=== PATIENT | female | born 1990 | race African-American/Black ===

== ENCOUNTER 2016-07-06 11:17 | Emergency (ER) | payer MEDICARE, OTHER ==
[~2016-07-06] VITALS: Ht 144.8 cm; Wt 49.9 kg
[~2016-07-06 11:17] MED LIST: ACETAMINOPHEN500 M3 ORAL; IBUPROFEN600 MG ORAL; NKM; NORCO 5-325 TA1 EACH ORAL
[2016-07-06] MEDS ORDERED: Oxycodone/Acetaminophen 5-325 ORAL ONE (12:00)
[2016-07-06] MEDS ORDERED: Ketorolac 60mg Inj IM ONE (12:00)
[2016-07-06] MEDS ORDERED: PREDNISONE20 MG ORAL (12:21)
[2016-07-06 12:32] VITALS: BP 85/54
--- NOTE | 2016-07-07 06:58 | Emergency Room Report ---
History of Present Illness General Chief Complaint: Upper Extremity Injury Source: Patient Present Illness HPI 25 YO F with 1 week of left forearm/wrist/hand pain. Denies trauma. Pain is worse with movement, but she states she has to move/flex her hands/fingers to "make it better." Denies swelling, redness, rash to area. Denies heavy lifting , recent new exercise, history of DVT. Denies history of carpal tunnel. Doesnt have office job. Has been taking alleve, motrin at home with some improvement. Pain keeps her up at night. Per EMR, here last year 2x for ?elbow fx, left arm pain as well. Patient is left hand dominant. Allergies: Coded Allergies: No Known Allergies (Unverified , 01/14/15) Patient History Past Medical History: none Past Surgical History: none Pertinent Family History: none Social History: Denies: alcohol use, drug use, smoking Last Menstrual Period: 05/18/16 Now: No - unsure Immunizations: UTD Reviewed Nursing Documentation: PMH: Agreed, PSxH: Agreed Nursing Documentation-PMH Past Medical History: No History, Except For Review of Systems All Other Systems: negative except mentioned in HPI Physical Exam Vital Signs Date Time Temp Pulse Resp B/P Pulse Ox O2 Delivery O2 Flow Rate FiO2 07/06/16 11:41 98.8 91 16 85/54 100 Room Air Sp02 EP Interpretation: reviewed, normal General Appearance: normal inspection, well appearing, alert, GCS 15, non-toxic , mild distress Head: normocephalic, atraumatic Eyes: bilateral eye EOMI, bilateral eye PERRL ENT: normal ENT inspection, hearing grossly normal, normal voice Neck: normal inspection, full range of motion, supple, no bony tend Respiratory: normal inspection, lungs clear, normal breath sounds, no respiratory distress, no retraction, no wheezing Cardiovascular #1: regular rate, rhythm, no edema Gastrointestinal: normal inspection, normal bowel sounds, non tender, soft, no guarding, no hernia Genitourinary: no CVA tenderness Musculoskeletal: normal inspection, back normal, normal range of motion, Marilin' s Sign negative, other - Left arm: No obvious swelling or erythema or deformity to left forearm, wrist, hand. There is no focal ttp on exa. Compartments are soft. Negatve phalen/tinnel test. Neurologic: normal inspection, alert, oriented x3, responsive, load out worker III-XII nml as tested, motor strength/tone normal, speech normal Psychiatric: normal inspection, judgement/insight normal, mood/affect normal Skin: normal inspection, normal color, no rash Lymphatic: normal inspection Medical Decision Making Diagnostic Impression: Primary Impression: Musculoskeletal pain of left upper extremity ER Course Left arm pain. VSS. Afebrile. Atraumatic. No sign of infection. Unlikely rhabdo as no precipitating activity, no recent new exercise. Unlikely CPT as no office work Possible rheumatism?, previous visits for similar type of pain Possible neuropathy Given minimal improvement with NSAIDS, will dry short course of steroids with recommendation for PMD followup, ?rheum referral DC home Last Vital Signs Date Time Temp Pulse Resp B/P Pulse Ox O2 Delivery O2 Flow Rate FiO2 07/06/16 12:32 98.7 07/06/16 12:32 16 85/54 100 Room Air 07/06/16 11:41 91 Status: improved Disposition: HOME, SELF-CARE Condition: Improved Scripts Prednisone* (PREDNISONE*) 20 Mg Tablet 20 MG ORAL DAILY for 5 Days, #5 TAB Prov: RAMYA MUHAMMAD M.D. 07/06/16 Referrals: [facility],REFERRING (PCP) Patient Instructions: Musculoskeletal Pain Additional Instructions: - Take Prednisone once daily for 5 days - Follow up with your doctor in 2-3 days RAMYA MUHAMMAD M.D. Jul 07, 2016 06:58
== END 2016-07-06 12:30 | disposition home or self-care (01) ==
LOC: EMR 12:25
DX: M79.632 Pain in left forearm (principal); M25.532 Pain in left wrist; M79.642 Pain in left hand
CPT/HCPCS: 96372; 99283

== ENCOUNTER 2017-03-18 17:53 | Emergency (ER) | payer MEDICARE, OTHER ==
[~2017-03-18] VITALS: Ht 144.8 cm; Wt 55.3 kg
[~2017-03-18 17:53] MED LIST changes: +PREDNISONE20 MG ORAL
--- NOTE | 2017-03-18 18:23 | Emergency Room Report ---
History of Present Illness General Chief Complaint: Skin Rash/Abscess Source: Patient, Medical Record Present Illness HPI Patient presents with erythema and redness to bilateral legs she noticed the area become more red this morning the area is itchy Denies any fevers or chills denies any chest pain or shortness of breath Denies any recent trauma Denies any lesions in the upper extremity Denies any discharge from the area Allergies: Coded Allergies: No Known Allergies (Unverified , 01/14/15) Patient History Past Medical History: see triage record Pertinent Family History: none Last Menstrual Period: 03/14/17 Reviewed Nursing Documentation: PMH: Agreed, PSxH: Agreed Nursing Documentation-PMH Past Medical History: No History, Except For Review of Systems All Other Systems: negative except mentioned in HPI Physical Exam Vital Signs Date Time Temp Pulse Resp B/P (MAP) Pulse Ox O2 Delivery O2 Flow Rate FiO2 03/18/17 17:55 98.1 101 18 110/74 99 Room Air Sp02 EP Interpretation: reviewed, normal General Appearance: well appearing, no apparent distress Head: normocephalic, atraumatic Eyes: bilateral eye PERRL, bilateral eye EOMI ENT: hearing grossly normal, normal pharynx, TMs + canals normal, uvula midline Neck: full range of motion, supple, no meningismus, no bony tend Respiratory: lungs clear, normal breath sounds, no rhonchi, no respiratory distress, no retraction, no accessory muscle use Cardiovascular #1: normal peripheral pulses, regular rate, rhythm, no edema, no gallop, no JVD, no murmur Gastrointestinal: normal bowel sounds, non tender, soft, no mass, no organomegaly, non-distended, no guarding, no hernia, no pulsatile mass, no rebound Musculoskeletal: normal inspection Neurologic: oriented x3, responsive, software developer mid level III-XII nml as tested, motor strength/ tone normal, sensory intact Psychiatric: mood/affect normal Skin: other - Several areas of urticarial lesions on the right and left upper thigh area, on the one area there is a central area of the scab appears to be possibly in line with insect bite otherwise no streaking of the erythema no fluctuance,, Lymphatic: normal inspection, no adenopathy Medical Decision Making Diagnostic Impression: Primary Impression: Insect bite Additional Impression: Rash and other nonspecific skin eruption ER Course Patient's regions appear to be in line with likely insect bite, reactive Patient was provided with medications here no signs of any airway pathology the area does not necessarily look infected and the patient will have initial conservative outpatient trial Last Vital Signs Date Time Temp Pulse Resp B/P (MAP) Pulse Ox O2 Delivery O2 Flow Rate FiO2 03/18/17 17:55 98.1 101 18 110/74 99 Room Air Status: improved Disposition: HOME, SELF-CARE Condition: Improved Scripts Famotidine (PEPCID) 40 Mg Tablet 40 MG PO DAILY, #7 TAB 0 Refills Prov: EILEEN BO D.O. 03/18/17 Diphenhydramine Hcl* (BENADRYL*) 25 Mg Capsule 25 MG ORAL Q6H Y for Itching for 7 Days, CAP Prov: EILEEN BO D.O. 03/18/17 Prednisone* (PREDNISONE*) 20 Mg Tablet 20 MG ORAL BID, #8 TAB Prov: EILEEN BO D.O. 03/18/17 Additional Instructions: Patient is provided with the discharge instructions notified to follow up with primary doctor in the next 2-3 days otherwise return to the er with any worsening symptoms. Please note that this report is being documented using [employer] technology. This can lead to erroneous entry secondary to incorrect interpretation by the dictating instrument. EILEEN BO D.O. Mar 18, 2017 18:23
[2017-03-18] MEDS ORDERED: PEPCID40 MG PO (18:24)
[2017-03-18] MEDS ORDERED: BENADRYL25 MG ORAL (18:24)
[2017-03-18] MEDS ORDERED: PREDNISONE20 MG ORAL (18:24)
[2017-03-18 18:40] VITALS: BP 100/70
== END 2017-03-18 19:00 | disposition home or self-care (01) ==
LOC: EMR 18:30
DX: S70.369A Insect bite (nonvenomous), unspecified thigh, initial encounter (principal); W57.XXXA Bitten or stung by nonvenomous insect and other nonvenomous arthropods, initial encounter; Y92.9 Unspecified place or not applicable; R21 Rash and other nonspecific skin eruption
CPT/HCPCS: 99283

== ENCOUNTER → 2017-12-06 | Emergency (ER) | payer MEDICARE, OTHER ==
[~2017-12-06] VITALS: Ht 144.8 cm; Wt 54.4 kg
[~2017-12-06] MED LIST changes: +AMOXICILLIN500 MG ORAL; +AUGMENTIN 875-1 EAC1 ORAL; +BENADRYL25 MG ORAL; +NEOMYCIN-POLYMY10 M1 OT; +PEPCID40 MG PO
[2017-12-06 17:17] VITALS: BP 118/81
--- NOTE | 2017-12-06 17:36 | Emergency Room Report ---
History of Present Illness General Chief Complaint: Earache Source: Patient Present Illness HPI 27-year-old female patient presents ER complaining of right ear pain and discharge the past 2 days. Denies fever, chest pain, shortness of breath. Denies recent swimming prior to onset of symptoms.. Denies other acute symptoms. Denies vertigo, vision changes, tinnitus. Reports pain with ear pulling. Denies hx of systemic disease, HIV, lupus. Denies other past medical problems. Allergies: Coded Allergies: No Known Allergies (Unverified , 01/14/15) Patient History Past Medical History: see triage record Last Menstrual Period: last week Now: No Reviewed Nursing Documentation: PMH: Agreed; PSxH: Agreed Nursing Documentation-PMH Past Medical History: No History, Except For Review of Systems All Other Systems: negative except mentioned in HPI Physical Exam Vital Signs Date Time Temp Pulse Resp B/P (MAP) Pulse Ox O2 Delivery O2 Flow Rate FiO2 12/06/17 17:11 98.3 77 18 118/81 99 Room Air 98.2 Sp02 EP Interpretation: reviewed, normal General Appearance: well appearing, no apparent distress, alert, GCS 15, non- toxic Head: normocephalic, atraumatic, other - no mastoid swelling, no mastoid erythema or edema, no TTP over mastoid process bilaterally ENT: hearing grossly normal, normal pharynx, no angioedema, normal voice, TMs + canals normal - left ear, uvula midline, moist mucus membranes, other - right ear: TM nonerythematous and intact, purulent material and edema noted, pain with ear pulling; no blistering or vesicles Neck: full range of motion Respiratory: lungs clear, normal breath sounds, no rhonchi, no respiratory distress, no accessory muscle use, no wheezing, speaking full sentences Cardiovascular #1: regular rate, rhythm, no edema Musculoskeletal: back normal, digits/nails normal, gait/station normal, normal range of motion, non-tender Neurologic: alert, oriented x3, responsive, motor strength/tone normal, sensory intact Psychiatric: mood/affect normal Medical Decision Making PA Attestation Dr. Kruse is my supervising Physician whom patient management has been discussed with. Diagnostic Impression: Primary Impression: Otitis externa ER Course Pt presents to ED c/o ear pain. DDX considered but are not limited to rhinitis, sinusitis, otitis media, otitis externa, cellulitis, mastoiditis, cerumen impaction. Low suspicion for mastoiditis, no swelling or erythema noted posterior to ear, no TTP. VITAL SIGNS are WNL, patient is afebrile. ER COURSE: Physical exam shows a right-sided purulent material noted, pain with ear pulling , likely otitis externa. Able to visualize TM, nonerythematous TM, no perforation, low suspicion for otitis media. Will provide patient with treatment for otitis externa. Checked patient follow-up with primary care provider and discuss referral to ENT as needed. Avoid swimming while treating infection. ER precautions given. DISCHARGE: -Rx provided for Neomycin/polmyxin B/HC drops Patient is hemodynamically stable and ready for discharge to home, nontoxic appearing, no acute distress, smiling and texting on phone. At this time pt is stable for d/c to home. resting comfortably, in no acute distress, nontoxic appearing, smiling. Patient to take medications as instructed Will provide with patient care instructions and any necessary prescriptions. Care plan and follow-up instructions provided. Patient instructed to follow-up with primary care in 3 - 5 days. Patient provided with list of clinics to establish care if unable to contact current PCP. Patient questions asked and answered. ER precautions given. Patient instructed to return to ER immediately for any new or worsening of symptoms including but not limited to increasing SOB, persistent fever. - Please note that this Emergency Department Report was dictated using [employer] painter technology software, occasionally this can lead to erroneous entry secondary to interpretation by the dictation equipment. Last Vital Signs Date Time Temp Pulse Resp B/P (MAP) Pulse Ox O2 Delivery O2 Flow Rate FiO2 12/06/17 17:17 98.2 18 118/81 99 Room Air 98.2 12/06/17 17:11 77 Disposition: HOME, SELF-CARE Condition: Stable Scripts Neomycin/Polymyxin B Sulf/Hc ([id number] EAR SUSP) 10 Ml Drops.susp 2 DROP OT TID for 7 Days, #10 ML Prov: James Ravi 12/06/17 Patient Instructions: Otitis Externa, [id number] Additional Instructions: Followup with primary care provider in 3 -5 days. Discuss referral to ENT. Do not use Q-tips. Take medications as directed. Patient questions asked and answered. ER precautions given, patient instructed to return to ER immediately for any new or worsening of symptoms. James Ravi Dec 06, 2017 17:36
[2017-12-06 17:44] VITALS: BP 118/81
== END | disposition home or self-care (01) ==
LOC: EMR 17:44
DX: H60.91 Unspecified otitis externa, right ear (principal)
CPT/HCPCS: 99283

== ENCOUNTER 2017-12-23 21:25 | Emergency (ER) | payer MEDICARE, MEDICAID ==
[~2017-12-23] VITALS: Ht 144.8 cm; Wt 51.7 kg
[~2017-12-23 21:25] MED LIST changes: -AMOXICILLIN500 MG ORAL; -AUGMENTIN 875-1 EAC1 ORAL
[2017-12-23] MEDS ORDERED: AMOXICILLIN500 MG ORAL (22:37)
[2017-12-23] MEDS ORDERED: AUGMENTIN 875-1 EAC1 ORAL (22:39)
--- NOTE | 2017-12-23 22:39 | Emergency Room Report ---
History of Present Illness General Chief Complaint: Earache Source: Patient Present Illness HPI Patient is a 27-year-old female who presented after increased right ear pain. Patient gradual onset of symptoms. She had recently been started on topical antibiotics. She denies recent trauma. Patient states that she had been having increased right ear pain was associated with some difficulty hearing. She denies any dizziness or lightheadedness. She had not been vomiting. She denied any neck pain or stiffness. Allergies: Coded Allergies: No Known Allergies (Unverified , 01/14/15) Patient History Past Medical History: see triage record Last Menstrual Period: 11/2017 Now: No Reviewed Nursing Documentation: PMH: Agreed; PSxH: Agreed Nursing Documentation-PMH Past Medical History: No History, Except For Review of Systems All Other Systems: negative except mentioned in HPI Physical Exam Vital Signs Date Time Temp Pulse Resp B/P (MAP) Pulse Ox O2 Delivery O2 Flow Rate FiO2 12/23/17 22:25 98.2 81 16 96/65 98 98.2 General Appearance: well appearing, no apparent distress, alert, GCS 15, non- toxic Head: normocephalic, atraumatic ENT: other - right ear canal fluid, yellow drainage Neck: full range of motion, supple Respiratory: no respiratory distress, speaking full sentences Musculoskeletal: no calf tenderness Neurologic: normal gait Psychiatric: mood/affect normal Skin: no rash Medical Decision Making Diagnostic Impression: Primary Impression: Earache, right ER Course Patient presented for ear pain. Differential diagnosis included was not limited to otitis media, malignant otitis externa, foreign body, cellulitis, mastoiditis, carotid dissection, myocardial infarction among others. The patient appears to have otitis media without perforation. The patient given prescription for oral antibiotics. Patient was advised follow-up with ENT. The patient is advised to follow up with primary care doctor in 1-2 days for ENT referral. Patient is advised to return if any worsening condition or if any changes in status that are concerning. This report is dictated with [employer] soldering machine operator helper software which may occasionally lead to discrepancies related to use of this software. Last Vital Signs Date Time Temp Pulse Resp B/P (MAP) Pulse Ox O2 Delivery O2 Flow Rate FiO2 12/23/17 22:25 98.2 81 16 96/65 98 98.2 Status: improved Disposition: HOME, SELF-CARE Condition: Stable Scripts Amoxicillin/Potassium Clav 875-125* (AUGMENTIN 875-125 TABLET*) 1 Each Tablet 1 TAB ORAL TWICE A DAY, #14 TAB Prov: Jose Eduardo Min MD 12/23/17 Amoxicillin* (AMOXIL*) 500 Mg Capsule 500 MG ORAL THREE TIMES A DAY, #21 CAP Prov: Jose Eduardo Min MD 12/23/17 Patient Instructions: Otitis Media, Adult Jose Eduardo Min MD Dec 23, 2017 22:39
[2017-12-23 22:40] VITALS: BP 96/65
[2017-12-23 23:00] VITALS: BP 96/65
== END 2017-12-23 23:00 | disposition home or self-care (01) ==
LOC: EMR 23:00
DX: H92.01 Otalgia, right ear (principal)
CPT/HCPCS: 99283

== ENCOUNTER 2018-03-10 23:52 | Emergency (ER) | payer MEDICARE, MEDICAID ==
[~2018-03-10] VITALS: Ht 144.8 cm; Wt 54.4 kg
[~2018-03-10 23:52] MED LIST changes: +AMOXICILLIN500 MG ORAL; +AUGMENTIN 875-1 EAC1 ORAL
[2018-03-10] MEDS ORDERED: NKM (23:57)
[2018-03-10 23:58] VITALS: BP 112/77
[2018-03-11] MEDS ORDERED: IBUPROFEN600 MG ORAL (00:42)
[2018-03-11] MEDS ORDERED: CEPHALEXIN500 MG ORAL (00:42)
[2018-03-11] MEDS ORDERED: BACTRIM DS TAB1 EAC1 ORAL (00:42)
[2018-03-11] MEDS ORDERED: Bactrim-DS 1 tab ORAL ONE (00:45)
[2018-03-11] MEDS ORDERED: Cephalexin 500mg cap ORAL ONE (00:45)
[2018-03-11 00:50] VITALS: BP 112/77
--- NOTE | 2018-03-11 02:40 | Emergency Room Report ---
History of Present Illness General Chief Complaint: Skin Rash/Abscess Source: Patient Present Illness HPI Patient is a 27-year-old female who presented after increased scalp discomfort. The patient reports having increased pain for the past few days. She denies any fever. She reports having some increased pain to the left side of her neck. She denies any vomiting or neck stiffness. She denies recent trauma.The pain was sharp in nature. Allergies: Coded Allergies: No Known Allergies (Unverified , 01/14/15) Patient History Past Medical History: see triage record Last Menstrual Period: 02/14/18 Now: No Reviewed Nursing Documentation: PMH: Agreed; PSxH: Agreed Review of Systems All Other Systems: negative except mentioned in HPI Physical Exam Vital Signs Date Time Temp Pulse Resp B/P (MAP) Pulse Ox O2 Delivery O2 Flow Rate FiO2 03/10/18 23:54 98.6 97 16 112/77 97 Room Air General Appearance: well appearing, no apparent distress, alert, GCS 15 Head: atraumatic, other - scalp erythema, no fluctuance ENT: hearing grossly normal, normal voice Neck: full range of motion, supple Respiratory: normal inspection, no respiratory distress, speaking full sentences Cardiovascular #1: normal inspection Musculoskeletal: no calf tenderness Neurologic: normal inspection, alert, oriented x3, responsive, normal gait Psychiatric: mood/affect normal Skin: other - occipital scalp rash Lymphatic: adenopathy - left posterior cervical Medical Decision Making Diagnostic Impression: Primary Impression: Infection of scalp ER Course The patient presented for skin rash. Differential diagnoses included was not limited to cellulitis, abscess, kerion, burn among others. Patient has a benign exam and does not appear to require any further imaging or laboratory testing at this time. The patient does not appear to have any the fluctuant abscess at this time. The patient was given prescription for antibiotics. She is advised to recheck with physician in one to 2 days. Labs Test 03/11/18 00:00 Urine HCG, Qualitative Negative (NEGATIVE) Urine Opiates Screen Negative (NEGATIVE) Urine Barbiturates Screen Negative (NEGATIVE) Phencyclidine (PCP) Screen Negative (NEGATIVE) Urine Amphetamines Screen Negative (NEGATIVE) Urine Benzodiazepines Screen Negative (NEGATIVE) Urine Cocaine Screen Negative (NEGATIVE) Urine Marijuana (THC) Screen Positive (NEGATIVE) Last Vital Signs Date Time Temp Pulse Resp B/P (MAP) Pulse Ox O2 Delivery O2 Flow Rate FiO2 03/11/18 00:50 98.6 77 16 112/77 97 Room Air Status: improved Disposition: HOME, SELF-CARE Condition: Stable Scripts Ibuprofen* (MOTRIN*) 600 Mg Tablet 600 MG ORAL Q8H PRN for For Pain, #30 TAB 0 Refills Prov: Jose Eduardo Min MD 03/11/18 Cephalexin* (KEFLEX*) 500 Mg Capsule 500 MG ORAL EVERY 6 HOURS, #28 CAP Prov: Jose Eduardo Min MD 03/11/18 Trimethoprim/Sulfamethoxazole 160/800* (BACTRIM DS TABLET*) 1 Each Tablet 1 TAB ORAL Q12H, #14 TAB 0 Refills Prov: Jose Eduardo Min MD 03/11/18 Referrals: [facility]/,REFERRING (PCP) Patient Instructions: Cellulitis Jose Eduardo Min MD Mar 11, 2018 02:40
== END 2018-03-11 00:50 | disposition home or self-care (01) ==
LOC: EMR 23:57
DX: L08.9 Local infection of the skin and subcutaneous tissue, unspecified (principal); R59.0 Localized enlarged lymph nodes
CPT/HCPCS: 80307; 81025; 99284

== ENCOUNTER 2018-06-15 22:14 | Emergency (ER) | payer MEDICARE, MEDICAID ==
[~2018-06-15] VITALS: Ht 144.8 cm; Wt 54.4 kg
[~2018-06-15 22:14] MED LIST changes: +BACTRIM DS TAB1 EAC1 ORAL; +CEPHALEXIN500 MG ORAL
[2018-06-15] MEDS ORDERED: NKM (22:20)
--- NOTE | 2018-06-15 22:26 | Emergency Room Report ---
History of Present Illness General Chief Complaint: Lower Extremity Injury Source: Patient Present Illness HPI This is a 27-year-old he male without any significant past medical history. She presents with chief complaint of left knee pain. She was running 3 days ago. She slipped and fell and hit her left knee. Complaining of pain over that area. There is some swelling. No nausea no vomiting but no fever chills or pain is 8 out of 10. Worse with movement. Been limping since then. No other injury. Did not pass out. Allergies: Coded Allergies: No Known Allergies (Unverified , 01/14/15) Patient History Past Medical History: see triage record, old chart reviewed Past Surgical History: none Pertinent Family History: none Social History: Denies: smoking Last Menstrual Period: may 14 Now: No Immunizations: other Reviewed Nursing Documentation: PMH: Agreed; PSxH: Agreed Review of Systems Eye: Denies: eye pain, blurred vision ENT: Denies: ear pain, nose congestion, throat swelling Respiratory: Denies: cough, shortness of breath Cardiovascular: Denies: chest pain, palpitations Gastrointestinal: Denies: abdominal pain, diarrhea, nausea, vomiting Musculoskeletal: Reports: joint pain; Denies: back pain Skin: Denies: rash Neurological: Denies: headache, numbness Endocrine: Denies: increased thirst, increased urine Hematologic/Lymphatic: Denies: easy bruising All Other Systems: negative except mentioned in HPI Physical Exam Vital Signs Date Time Temp Pulse Resp B/P (MAP) Pulse Ox O2 Delivery O2 Flow Rate FiO2 06/15/18 22:17 98.4 80 16 103/58 97 Room Air vitals normal Sp02 EP Interpretation: reviewed, normal General Appearance: well appearing, no apparent distress, alert Head: normocephalic, atraumatic Eyes: bilateral eye PERRL, bilateral eye EOMI ENT: hearing grossly normal, normal pharynx Neck: full range of motion, supple, no meningismus Respiratory: chest non-tender, lungs clear, normal breath sounds Cardiovascular #1: regular rate, rhythm, no murmur Gastrointestinal: normal bowel sounds, non tender, no mass, no organomegaly, no bruit, non-distended Musculoskeletal: back normal, normal range of motion, other - abrasion to left patella and TTP. mild edema. Decreased ROM due to pain. Psychiatric: mood/affect normal Skin: warm/dry Procedures Splinting Splinting : Consent: Verbal Location: left knee Pre-Made Type: LILLIE wrap Pre-Proc Neuro Vasc Exam: normal Post-Proc Neuro Vasc Exam: normal Patient Tolerated: Well Complications: None Medical Decision Making Diagnostic Impression: Primary Impression: Contusion of left knee, initial encounter Additional Impression: Abrasion, left knee, initial encounter ER Course Patient with injury to the left knee. She has an abrasion and some mild redness. Possible early cellulitis but we'll put on antibiotics. On her x-ray , there is a calcified a mass inferior to the patella. Her injury and abrasion is to the superior aspect of the patella. I see no evidence of foreign body. She had previous injury to this area when she was younger. This could've been a retained foreign body versus calcification from tendon laceration. This is not acute. Other X-Ray Diagnostic Results Other X-Ray Diagnostic Results : X-Ray ordered: Left knee x-rays # of Views/Limited Vs Complete: 4 View Indication: Pain EP Interpretation: Yes Interpretation: no dislocation, no soft tissue swelling, no fractures Impression: No acute disease Electronically Signed by: Shaji Barraza MD Last Vital Signs Date Time Temp Pulse Resp B/P (MAP) Pulse Ox O2 Delivery O2 Flow Rate FiO2 06/15/18 22:17 98.4 80 16 103/58 97 Room Air Status: improved Disposition: HOME, SELF-CARE Condition: Stable Scripts Tramadol Hcl* (ULTRAM*) 50 Mg Tablet 50 MG ORAL Q6H PRN for For Pain, #15 TAB 0 Refills Prov: Shaji Barraza MD 06/15/18 Trimethoprim/Sulfamethoxazole 160/800* (BACTRIM DS TABLET*) 1 Each Tablet 1 TAB ORAL Q12H, #14 TAB 0 Refills Prov: Shaji Barraza MD 06/15/18 Additional Instructions: Keep area clean. Clean with hydroperoxide and then apply antibiotic ointment. Use crutches as needed. Follow-up with your doctor in 7 days. Return if worse. Shaji Barraza MD Jun 15, 2018 22:26
--- NOTE | 2018-06-15 22:26 | NUR ---
ED Nurse Note: pt walked in due to left knee abrasion and pain. pt stated she fell while running 3 days ago
[2018-06-15] MEDS ORDERED: Norco 5mg/325mg tab ORAL ONE (22:30)
[2018-06-15] MEDS ORDERED: BACTRIM DS TAB1 EAC1 ORAL (23:00)
[2018-06-15] MEDS ORDERED: TRAMADOL HCL50 MG ORAL (23:00)
[2018-06-15 23:04] VITALS: BP 103/58
--- NOTE | 2018-06-15 23:07 | NUR ---
ED Nurse Note: Pt is DC per ERMD orders. pt is alert and oriented times 4 and understands all DC notes and instructions. pt is instructed to follow up with main provider as soon as possible. pt is instructed to return to ER if any variance in condition. pt left with all belongings as well as DC notes and instructions. pt vital signs, condition and status is reported to ERMD prior to DC. pt is stable for DC. pt vital signs is stable. pt is able to ambulate. pt ID band removed.
--- NOTE | 2018-06-16 13:29 | Diagnostic Imaging Report ---
Indication: Knee Pain 3 views of the left knee were obtained. Findings: No acute fracture, malalignment, or joint effusion are identified. Joint space is relatively well-maintained. Impression: Negative for acute injury
== END 2018-06-15 23:00 | disposition home or self-care (01) ==
LOC: EMR 22:25
DX: S80.02XA Contusion of left knee, initial encounter (principal); S80.212A Abrasion, left knee, initial encounter; W01.0XXA Fall on same level from slipping, tripping and stumbling without subsequent striking against object, initial encounter; Y92.89 Other specified places as the place of occurrence of the external cause
CPT/HCPCS: 99283

== ENCOUNTER 2019-05-22 17:29 | Emergency (ER) | payer MEDICAID, MEDICARE ==
[~2019-05-22] VITALS: Ht 144.8 cm; Wt 54.4 kg
[~2019-05-22 17:29] MED LIST changes: +TRAMADOL HCL50 MG ORAL
[2019-05-22 18:05] VITALS: BP 115/92
--- NOTE | 2019-05-22 18:08 | NUR ---
ED Nurse Note: Pt ambulated into ED from home with boyfriend [place] flu like symptoms, persistent cough, chest pain 10/ that does not radaite. Pt reports n/v. ERMD at bedside
[2019-05-22] MEDS ORDERED: Ketorolac 30mg Inj IV ONE (18:15)
--- NOTE | 2019-05-22 18:21 | Emergency Room Report ---
History of Present Illness General Chief Complaint: Flu Like Symptoms Source: Patient Present Illness HPI Disclaimer: Please note that this report is being documented using DRAGON technology. This can lead to erroneous entry secondary to incorrect interpretation by the dictating instrument. HPI: 28-year-old otherwise healthy female presents for evaluation of cough and vomiting. Symptoms began yesterday. She notes fevers at home greater than 100 degrees, persistent and worsening productive cough with green sputum, nausea, 2 episodes of emesis. Reports chest pain with coughing and with deep inhalation. Denies diarrhea. Reports diffuse muscle aches and pains. Unable to hold down solids or liquids. Has been using NyQuil and taking Tylenol. Reports multiple sick contacts. Did not receive a flu shot this year. Denies dysuria or hematuria. LMP 2 weeks ago. PMH: Denies PSH: Denies Allergies: Denies Social Hx: Denies alcohol, tobacco or drug use Allergies: Coded Allergies: No Known Allergies (Unverified , 01/14/15) Patient History Last Menstrual Period: 04/21/2019 Nursing Documentation-PMH Past Medical History: No History, Except For Review of Systems All Other Systems: negative except mentioned in HPI Physical Exam Vital Signs Date Time Temp Pulse Resp B/P (MAP) Pulse Ox O2 Delivery O2 Flow Rate FiO2 05/22/19 17:58 99.3 110 19 112/87 (95) 97 Room Air General: Awake and alert, appears uncomfortable HEENT: NC/AT. EOMI. anicteric sclera. Moist mucous membranes. Uvula midline. Tonsils are 1+ and nonobstructing. No pharyngeal edema or erythema. Neck: Supple, trachea midline, small bilateral anterior and tender nodes. Cardiovascular: Tachycardic. S1 and S2 normal. No murmur appreciated Resp: Tachypnea. No increased work of breathing. Persistent cough throughout the exam. No wheezing or crackles appreciated. Abdomen: Abdomen is soft, nondistended. Mild tenderness in the epigastrium. Negative Marcos sign, otherwise nontender, no masses, no rebound and no guarding. Skin: Intact. No abrasions, laceration or rash over the exposed skin MSK: Normal tone and bulk. Moving all extremities. No obvious deformity. Neuro: Awake and alert. Mentating appropriately. Medical Decision Making Diagnostic Impression: Primary Impression: Viral syndrome Additional Impression: Influenza-like symptoms ER Course This is a otherwise healthy 28-year-old female presenting for 2 days URI symptoms, persistent cough, vomiting and myalgias. Differential includes was not limited to viral syndrome, influenza, pneumonia, gastritis, gastroenteritis. Will send for flu swab, basic labs, chest x-ray. IV fluids, antiemetics and pain medication ordered. Laboratory Tests Test 05/22/19 18:30 05/22/19 19:55 White Blood Count 3.0 K/UL (4.8-10.8) L Red Blood Count 5.20 M/UL (4.20-5.40) Hemoglobin 12.4 G/DL (12.0-16.0) Hematocrit 39.4 % (37.0-47.0) Mean Corpuscular Volume 76 FL (80-99) L Mean Corpuscular Hemoglobin 23.8 PG (27.0-31.0) L Mean Corpuscular Hemoglobin Concent 31.4 G/DL (32.0-36.0) L Red Cell Distribution Width 10.9 % (11.6-14.8) L Platelet Count 220 K/UL (150-450) Mean Platelet Volume 8.4 FL (6.5-10.1) Neutrophils (%) (Auto) % (45.0-75.0) Lymphocytes (%) (Auto) % (20.0-45.0) Monocytes (%) (Auto) % (1.0-10.0) Eosinophils (%) (Auto) % (0.0-3.0) Basophils (%) (Auto) % (0.0-2.0) Differential Total Cells Counted 100 Neutrophils % (Manual) 42 % (45-75) L Lymphocytes % (Manual) 40 % (20-45) Monocytes % (Manual) 13 % (1-10) H Eosinophils % (Manual) 0 % (0-3) Basophils % (Manual) 0 % (0-2) Band Neutrophils 5 % (0-8) Platelet Estimate Adequate Platelet Morphology Normal Anisocytosis 1+ Microcytosis 1+ Sodium Level 142 MMOL/L (136-145) Potassium Level 3.2 MMOL/L (3.5-5.1) L Chloride Level 105 MMOL/L (98-107) Carbon Dioxide Level 27 MMOL/L (21-32) Anion Gap 10 mmol/L (5-15) Blood Urea Nitrogen 10 mg/dL (7-18) Creatinine 0.7 MG/DL (0.55-1.30) Estimate Glomerular Filtration Rate > 60 mL/min (>60) Glucose Level 112 MG/DL (74-106) H Calcium Level 8.6 MG/DL (8.5-10.1) Urine Color Pale yellow Urine Appearance Slightly cloudy Urine pH 6 (4.5-8.0) Urine Specific [place] 1.020 (1.005-1.035) Urine Protein 1+ (NEGATIVE) H Urine Glucose (UA) Negative (NEGATIVE) Urine Ketones Negative (NEGATIVE) Urine Blood 3+ (NEGATIVE) H Urine Nitrite Negative (NEGATIVE) Urine Bilirubin Negative (NEGATIVE) Urine Urobilinogen Normal MG/DL (0.0-1.0) Urine Leukocyte Esterase 1+ (NEGATIVE) H Urine RBC 10-15 /HPF (0 - 2) H Urine WBC 5-10 /HPF (0 - 2) H Urine Squamous Epithelial Cells Moderate /LPF (NONE/OCC) H Urine Amorphous Sediment Few /LPF (NONE) H Urine Bacteria Moderate /HPF (NONE) H Urine HCG, Qualitative Negative (NEGATIVE) Microbiology Date/Time Source Procedure Growth Status 05/22/19 18:30 Nasal Nares - Final Complete 05/22/19 18:30 Nasal Nares - Final Complete EKG Diagnostic Results EKG Time: 19:38 Rate: tachycardiac Rhythm: NSR ST Segments: no acute changes Other Impression Sinus tachycardia. normal axis, normal intervals, no ST segment changes. Rhythm Strip Diag. Results Rhythm Strip Time: 19:38 EP Interpretation: yes Rate: 100 Rhythm: NSR, no PVC's, no ectopy Chest X-Ray Diagnostic Results Chest X-Ray Diagnostic Results : Chest X-Ray Ordered: Yes # of Views/Limited/Complete: 1 View Indication: Shortness of Breath EP Interpretation: Yes Interpretation: no consolidation, no effusion, no pneumothorax, no acute cardiopulmonary disease Impression: No acute disease Electronically Signed by: Electronically signed by Dr. Sunil Mejia Reevaluation Time: 21:40 Last Vital Signs Date Time Temp Pulse Resp B/P (MAP) Pulse Ox O2 Delivery O2 Flow Rate FiO2 05/22/19 17:58 99.3 110 19 112/87 (95) 97 Room Air Reevaluation Impression EKG, chest x-ray and labs are largely unremarkable. Urinalysis did show some bacteria, white cells and 1+ leukocyte esterase however the patient denies any symptoms of a urinary tract infection. There are also moderate epithelial cells concerning for a possible contaminated sample. Elected not to treat at this time. Influenza swabs are negative. Given the patient's symptoms I have suspicion for influenza despite the negative flu swabs. We will start treating with oseltamavir and also prescribe Zofran to treat her symptoms as an outpatient basis. Discussed hand hygiene, contact precautions with the patient. She will follow-up with her PMD on an outpatient basis. Discussed reasons to return to the emergency department. She understands and agrees with this treatment plan. Disposition: HOME, SELF-CARE Condition: Stable Scripts Ondansetron Odt* (ZOFRAN ODT*) 4 Mg Tab.rapdis 4 MG BC EVERY 6 HOURS PRN for Nausea & Vomiting, #20 TAB 0 Refills Prov: Sunil Mejia MD 05/22/19 Oseltamivir Phosphate (Tamiflu) 75 Mg Capsule 75 MG ORAL TWICE A DAY for 5 Days, #10 CAP Prov: Sunil Mejia MD 05/22/19 Sunil Mejia MD May 22, 2019 18:21
--- NOTE | 2019-05-22 18:30 | NUR ---
ED Nurse Note: Labs sent
[2019-05-22 18:43] LABS: HEMATOCRIT 39.4 % (37.0-47.0); HEMOGLOBIN 12.4 G/DL (12.0-16.0); MEAN CORPUSCULAR VOLUME 76 FL (80-99); PLATELET COUNT 220 K/UL (150-450); RED CELL DISTRIBUTION WIDTH 10.9 % (11.6-14.8)
--- NOTE | 2019-05-22 18:45 | NUR ---
ED Nurse Note: xray at bedside
[2019-05-22 19:08] LABS: ANION GAP 10 mmol/L (5-15); BLOOD UREA NITROGEN 10 mg/dL (7-18); CALCIUM 8.6 MG/DL (8.5-10.1); CARBON DIOXIDE 27 MMOL/L (21-32); CHLORIDE 105 MMOL/L (98-107); CREATININE 0.7 MG/DL (0.55-1.30); POTASSIUM 3.2 MMOL/L (3.5-5.1); SODIUM 142 MMOL/L (136-145)
--- NOTE | 2019-05-22 19:10 | NUR ---
ED Nurse Note: Report given to FRANKLYN Flores. Pt in stable condition, resting in bed, aao x4.
--- NOTE | 2019-05-22 19:10 | NUR ---
ED Nurse Note: Pt received from FRANKLYN Valles. Pt is resting in bed at this time. Iv fluids infusing. No acute distress noted. Will continue to monitor. Pt does not have to urinate at this time, will obtain urine sample.
[2019-05-22] MEDS ORDERED: Oseltamivir 75mg cap ORAL ONE (19:45)
--- NOTE | 2019-05-22 19:52 | NUR ---
ED Nurse Note: Pt able to ambulate with steady gait to restroom. Urine specimen obtained, sent to lab.
[2019-05-22] MEDS ORDERED: TAMIFLU75 MG ORAL (20:13)
[2019-05-22 20:33] LABS: BILIRUBIN, URINE NEGATIVE (NEGATIVE); COLOR,URINE PALE YELLOW; GLUCOSE, URINE (UA) NEGATIVE (NEGATIVE); KETONES,URINE NEGATIVE (NEGATIVE); LEUKOCYTE ESTERASE ,URINE 1+ (NEGATIVE); NITRITE,URINE NEGATIVE (NEGATIVE); PH,URINE 6 (4.5-8.0); PROTEIN,URINE 1+ (NEGATIVE); UROBILINOGEN,URINE NORMAL MG/DL (0.0-1.0)
[2019-05-22 20:36] LABS: APPEARANCE,URINE SLIGHTLY CLOUDY
[2019-05-22] MEDS ORDERED: ONDANSETRON ODT4 MG BC (20:40)
[2019-05-22 21:05] VITALS: BP 116/75
--- NOTE | 2019-05-22 21:05 | NUR ---
ER DISCHARGE NOTE: Patient is cleared to be discharged per ERMD, pt is aox4, on room air, with stable vital signs. pt was given dc and prescription instructions, pt was able to verbalize understanding, pt id band and iv site removed without complications. pt is able to ambulate with steady gait. pt took all belongings.
--- NOTE | 2019-05-23 18:31 | Diagnostic Imaging Report ---
Indication: Cough Technique: One view of the chest Comparison: none Findings: Lungs and pleural spaces are clear. Heart size is normal. Impression: No acute process
== END 2019-05-22 21:05 | disposition home or self-care (01) ==
LOC: EMR 18:35
DX: B34.9 Viral infection, unspecified (principal); R11.10 Vomiting, unspecified; M79.10 Myalgia, unspecified site; R00.0 Tachycardia, unspecified
CPT/HCPCS: 36415; 71045; 80048; 81003; 81025; 85007; 85025; 86710; 87086; 93005; 96361; 96374; 96375; J1885; J2405; Z7502; 99284

== ENCOUNTER 2019-09-19 15:45 | Emergency (ER) | payer MEDICARE, MEDICAID ==
[~2019-09-19] VITALS: Ht 144.8 cm; Wt 54.4 kg
[~2019-09-19 15:45] MED LIST changes: +ONDANSETRON ODT4 MG BC; +TAMIFLU75 MG ORAL
[2019-09-19 15:54] VITALS: BP 108/75
--- NOTE | 2019-09-19 16:00 | Emergency Room Report ---
History of Present Illness General Chief Complaint: Female Urogenital Problems Source: Patient Present Illness HPI 29-year-old female presents to the emergency department complaining of lower abdominal cramping that is 10 out of 10 in severity in addition to vaginal bleeding x5 days. Patient reports she passed 2 large dark blood clots approximately 1 hour ago. Patient reports she is 8 weeks . Patient is G5, P3 --with 1 prior . Patient believes she may be miscarrying. She reports normal vaginal delivery with previous pregnancies and no compilations other than requiring a blood transfusion after her most recent one. She has been taking vitamin gummies daily. She had an appt. today with OBGYN but was told to go to ED instead. Pt. denies dysuria, she reports urinary frequency. She denies fevers or chills. she reports midline lower abdominal pain and on occasion low back cramping. She denies vaginal d/c other than blood clots. Denies N/V/C/D. Allergies: Coded Allergies: No Known Allergies (Unverified , 01/14/15) COVID-19 Screening Contact w/high risk pt: No Recent Travel to affected area: No Experienced COVID-19 symptoms?: No Patient History Past Medical History: see triage record Past Surgical History: none Reviewed Nursing Documentation: PMH: Agreed; PSxH: Agreed Nursing Documentation-PMH Past Medical History: No Stated History Review of Systems All Other Systems: negative except mentioned in HPI Physical Exam Vital Signs Date Time Temp Pulse Resp B/P (MAP) Pulse Ox O2 Delivery O2 Flow Rate FiO2 //20 15:46 98.2 93 19 108/75 (86) 99 Room Air Sp02 EP Interpretation: reviewed, normal General Appearance: no apparent distress, alert, GCS 15, non-toxic Head: normocephalic, atraumatic Eyes: bilateral eye normal inspection, bilateral eye PERRL ENT: hearing grossly normal, normal voice Neck: full range of motion Respiratory: chest non-tender, lungs clear, normal breath sounds, speaking full sentences Cardiovascular #1: regular rate, rhythm Gastrointestinal: normal bowel sounds, non tender, soft, non-distended, no guarding Genitourinary: normal inspection, no CVA tenderness, adnexa normal - no adnexal ttp., deferred - pt. defers vaginal exam and US Musculoskeletal: back normal, normal range of motion, gait/station normal, non- tender Neurologic: alert, motor strength/tone normal, oriented x3, sensory intact, responsive, speech normal Psychiatric: judgement/insight normal Skin: no rash, normal color Lymphatic: no adenopathy Medical Decision Making PA Attestation Dr. Kruse is my supervising Physician whom patient management has been discussed with. Diagnostic Impression: Primary Impression: Complete miscarriage Additional Impressions: Vaginal bleeding Negative test ER Course 29-year-old female presents to the emergency department complaining of lower abdominal cramping that is 10 out of 10 in severity in addition to vaginal bleeding x5 days. Patient reports she passed 2 large dark blood clots approximately 1 hour ago. Patient reports she is 8 weeks . Patient is G5, P3 --with 1 prior . Patient believes she may be miscarrying. She reports normal vaginal delivery with previous pregnancies and no compilations other than requiring a blood transfusion after her most recent one. She has been taking vitamin gummies daily. She had an appt. today with OBGYN but was told to go to ED instead. Pt. denies dysuria, she reports urinary frequency. She denies fevers or chills. she reports midline lower abdominal pain and on occasion low back cramping. She denies vaginal d/c other than blood clots. Denies N/V/C/D. Ddx considered but are not limited to: Fibroid, ectopic , Fibroid, Spontaneous ,placenta previa, placenta abruptio Vital signs: are WNL, pt. is afebrile Pelvic Exam: deferred by Pt. H&PE are most consistent with: spotting during early with possible miscarriage which warrants emergent diagnostic labs and imaging for complete evaluation. ORDERS: -CBC: WNL-- no significant -UA: rbc's and blood no increase in inflammatory markers -Serum Hcg Quant: less than 1 - Blood/RH type and screen- [ B POSITIVE ] -Pelvic US complete- Pt. refused transvaginal US. - empty uterus, no retained POC per US tech. ED INTERVENTIONS: -1 Liter NS IV - Tylenol PO -15mg Toradol IV -I do not identify an emergent condition at this time. With current presentation , pt. is stable for close outpatient follow up and conservative treatment. D/ w pt. to return promptly to ED with worsening or new symptoms.- Pt. verbalizes' understanding and agreement with proposed treatment plan. DISCHARGE: At this time pt. is stable for d/c to home. Will provide printed patient care instructions, and any necessary prescriptions. Care plan and follow up instructions have been discussed with the patient prior to discharge. Labs Test 09/19/19 15:50 09/19/19 16:23 White Blood Count 5.3 K/UL (4.8-10.8) Red Blood Count 5.05 M/UL (4.20-5.40) Hemoglobin 11.6 G/DL (12.0-16.0) Hematocrit 38.0 % (37.0-47.0) Mean Corpuscular Volume 75 FL (80-99) Mean Corpuscular Hemoglobin 23.0 PG (27.0-31.0) Mean Corpuscular Hemoglobin Concent 30.5 G/DL (32.0-36.0) Red Cell Distribution Width 14.4 % (11.6-14.8) Platelet Count 325 K/UL (150-450) Mean Platelet Volume 8.8 FL (6.5-10.1) Neutrophils (%) (Auto) 50.5 % (45.0-75.0) Lymphocytes (%) (Auto) 39.7 % (20.0-45.0) Monocytes (%) (Auto) 7.2 % (1.0-10.0) Eosinophils (%) (Auto) 1.1 % (0.0-3.0) Basophils (%) (Auto) 1.5 % (0.0-2.0) Sodium Level 144 MMOL/L (136-145) Potassium Level 3.3 MMOL/L (3.5-5.1) Chloride Level 105 MMOL/L (98-107) Carbon Dioxide Level 30 MMOL/L (21-32) Anion Gap 9 mmol/L (5-15) Blood Urea Nitrogen 7 mg/dL (7-18) Creatinine 0.8 MG/DL (0.55-1.30) Estimat Glomerular Filtration Rate > 60 mL/min (>60) Glucose Level 111 MG/DL (74-106) Calcium Level 9.4 MG/DL (8.5-10.1) Total Bilirubin 0.3 MG/DL (0.2-1.0) Aspartate Amino Transf (AST/SGOT) 16 U/L (15-37) Alanine Aminotransferase (ALT/SGPT) 16 U/L (12-78) Alkaline Phosphatase 55 U/L (46-116) Total Protein 8.3 G/DL (6.4-8.2) Albumin 4.2 G/DL (3.4-5.0) Globulin 4.1 g/dL Albumin/Globulin Ratio 1.0 (1.0-2.7) Human Chorionic Gonadotropin, Quant 1 mIU/mL (1-6) Urine Color Red Urine Appearance Clear Urine pH 8 (4.5-8.0) Urine Specific [place] 1.010 (1.005-1.035) Urine Protein 3+ (NEGATIVE) Urine Glucose (UA) Negative (NEGATIVE) Urine Ketones Negative (NEGATIVE) Urine Blood 5+ (NEGATIVE) Urine Nitrite Negative (NEGATIVE) Urine Bilirubin Negative (NEGATIVE) Urine Urobilinogen Normal MG/DL (0.0-1.0) Urine Leukocyte Esterase 2+ (NEGATIVE) Urine RBC 15-20 /HPF (0 - 2) Urine WBC 2-4 /HPF (0 - 2) Urine Squamous Epithelial Cells Few /LPF (NONE/OCC) Urine Bacteria Few /HPF (NONE) CT/MRI/US Diagnostic Results CT/MRI/US Diagnostic Results : Imaging Test Ordered: OB US Impression "IMPRESSION: 1. No evidence of intrauterine or retained products of conception. Please correlate with serial beta hCG measurements and short-term follow-up exam if clinically indicated. 2. Normal ovaries." --Per official radiology report- Please see report for specific details. Last Vital Signs Date Time Temp Pulse Resp B/P (MAP) Pulse Ox O2 Delivery O2 Flow Rate FiO2 09/19/19 15:54 98.2 93 19 108/75 99 Room Air Disposition: HOME, SELF-CARE Condition: Stable Scripts Ibuprofen* (MOTRIN*) 400 Mg Tablet 400 MG ORAL THREE TIMES A DAY, #30 TAB 0 Refills Prov: Gloria Coughlin 09/19/19 Patient Instructions: Miscarriage Additional Instructions: Take medications as directed. Follow up with a OBGYN within 3 days, even if your symptoms have resolved. Return sooner to ED if new symptoms occur, or current symptoms become worse. - Please note that this Emergency Department Report was dictated using [employer] skinner technology software, occasionally this can lead to erroneous entry secondary to interpretation by the dictation equipment. Gloria Coughlin September 19, 2019 16:00
[2019-09-19 16:12] LABS: BASOPHILS % (AUTO) 1.5 % (0.0-2.0); EOSINOPHILS % (AUTO) 1.1 % (0.0-3.0); HEMOGLOBIN 11.6 G/DL (12.0-16.0); LYMPHOCYTES % (AUTO) 39.7 % (20.0-45.0); MEAN CORPUSCULAR VOLUME 75 FL (80-99); MONOCYTES % (AUTO) 7.2 % (1.0-10.0); NEUTROPHILS % (AUTO) 50.5 % (45.0-75.0); PLATELET COUNT 325 K/UL (150-450); RED BLOOD COUNT 5.05 M/UL (4.20-5.40); RED CELL DISTRIBUTION WIDTH 14.4 % (11.6-14.8); WHITE BLOOD COUNT 5.3 K/UL (4.8-10.8)
[2019-09-19 16:19] LABS: ANION GAP 9 mmol/L (5-15); BLOOD UREA NITROGEN 7 mg/dL (7-18); CALCIUM 9.4 MG/DL (8.5-10.1); CARBON DIOXIDE 30 MMOL/L (21-32); CHLORIDE 105 MMOL/L (98-107); CREATININE 0.8 MG/DL (0.55-1.30); POTASSIUM 3.3 MMOL/L (3.5-5.1); SODIUM 144 MMOL/L (136-145)
[2019-09-19 16:26] LABS: ALANINE AMINOTRANSFERASE 16 U/L (12-78); ALBUMIN 4.2 G/DL (3.4-5.0); ALKALINE PHOSPHATASE 55 U/L (46-116); ASPARTATE AMINO TRANSFERASE 16 U/L (15-37); BILIRUBIN,TOTAL 0.3 MG/DL (0.2-1.0)
[2019-09-19 16:57] LABS: APPEARANCE,URINE CLEAR; BILIRUBIN, URINE NEGATIVE (NEGATIVE); GLUCOSE, URINE (UA) NEGATIVE (NEGATIVE); KETONES,URINE NEGATIVE (NEGATIVE); LEUKOCYTE ESTERASE ,URINE 2+ (NEGATIVE); NITRITE,URINE NEGATIVE (NEGATIVE); PH,URINE 8 (4.5-8.0); PROTEIN,URINE 3+ (NEGATIVE); UROBILINOGEN,URINE NORMAL MG/DL (0.0-1.0)
[2019-09-19 17:02] LABS: COLOR,URINE RED
[2019-09-19 17:41] VITALS: BP 110/78
[2019-09-19] MEDS ORDERED: IBUPROFEN400 MG ORAL (17:58)
[2019-09-19] MEDS ORDERED: Ketorolac 30mg Inj IV ONE (18:00)
[2019-09-19 18:12] VITALS: BP 107/74
--- NOTE | 2019-09-19 18:17 | Diagnostic Imaging Report ---
EXAM: US First Trimester , Transabdominal CLINICAL HISTORY: PAIN TECHNIQUE: Real-time transabdominal obstetrical ultrasound of the maternal pelvis and a first trimester with image documentation. COMPARISON: None FINDINGS: Uterus: Measures 9.3 x 4.8 x 4.7 cm. Nabothian cyst in the cervix. Endometrium measures 7.6 mm. No associated color Doppler flow within the endometrium. Right ovary: Measures 3.6 x 3.4 x 1.5 cm. Normal appearance with normal color Doppler flow. Left ovary: Measures 2.3 x 3.5 x 2.3 cm. Normal appearance with normal color Doppler flow. Other: No free fluid. No adnexal mass. IMPRESSION: 1. No evidence of intrauterine or retained products of conception. Please correlate with serial beta hCG measurements and short- term follow-up exam if clinically indicated. 2. Normal ovaries.
== END 2019-09-19 18:13 | disposition home or self-care (01) ==
LOC: EMR 16:15
DX: O03.9 Complete or unspecified spontaneous abortion without complication (principal); N93.9 Abnormal uterine and vaginal bleeding, unspecified
CPT/HCPCS: 36415; 76801; 80053; 81003; 84702; 85025; 86900; 86901; 96361; 96374; 99284; J1885; J7030

== ENCOUNTER 2020-03-11 08:23 | Emergency (ER) | payer MEDICARE, MEDICAID ==
[~2020-03-11] VITALS: Ht 144.8 cm; Wt 54.4 kg
[~2020-03-11 08:23] MED LIST changes: +IBUPROFEN400 MG ORAL
[2020-03-11 08:50] VITALS: BP 123/65
--- NOTE | 2020-03-11 08:57 | Emergency Room Report ---
History of Present Illness General Chief Complaint: Upper Extremity Injury Present Illness HPI Disclaimer: Please note that this report is being documented using DRAGON technology. This can lead to erroneous entry secondary to incorrect interpretation by the dictating instrument. HPI: 29-year-old [id number] female presents for evaluation of right thumb pain. Symptoms present 2 to 3 weeks. Cannot recall specific injury but notes persistent pain when moving the right thumb at the base of the thumb. Denies overlying skin changes or swelling. Denies pain in the wrist or other digits of the hand. No prior history of surgery or injury to the area. Denies numbness, tingling or changes in strength. Somewhat limited range of motion due to pain. No edema noted. Has been resting and elevating but not taking any medications. 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 EOMI. Resp: Normal work of breathing Skin: Intact. No abrasions, laceration or rash over the exposed skin MSK: Normal tone and bulk. Moving all extremities. No obvious deformity. There is tenderness palpation at the base of the right thumb over the anatomic snuffbox without palpable deformity. Able to flex and extend the thumb. Able to flex and extend all other digits as well as the wrist. No edema or overlying skin changes noted. Neuro: Awake and alert. Mentating appropriately Medical Decision Making Diagnostic Impression: Primary Impression: Thumb pain ER Course Is a 29-year-old female presenting for evaluation of right thumb pain. Differential includes not limited to occult fracture, de Quervain's tenosynovitis, ligamentous strain or sprain. X-ray was obtained does not show acute bony abnormalities. Patient was placed in a thumb spica and will follow- up with orthopedic surgery and PMD. Will prescribe Tylenol. Told to avoid ibuprofen and NSAIDs as the patient recently found out she is . Discussed reasons to return to the ER. She understands and agrees with the treatment plan. Other X-Ray Diagnostic Results Other X-Ray Diagnostic Results : X-Ray ordered: Right hand # of Views/Limited Vs Complete: Complete Indication: Pain EP Interpretation: Yes Interpretation: no dislocation, no soft tissue swelling, no fractures Impression: No acute disease Electronically Signed by: Electronically signed by Dr. Sunil Mejia Last Vital Signs Date Time Temp Pulse Resp B/P (MAP) Pulse Ox O2 Delivery O2 Flow Rate FiO2 03/11/20 08:32 98.2 78 18 123/65 (84) 98 Room Air Scripts Acetaminophen* (TYLENOL EXTRA STRENGTH*) 500 Mg Tablet 500 MG ORAL Q8H PRN for Prn Headache/Temp > 101, #30 TAB 0 Refills Prov: Sunil Mejia MD 03/11/20 Referrals: [facility]ERR[facility] (PCP) Sunil Mejia MD Mar 11, 2020 08:57
[2020-03-11] MEDS ORDERED: IBUPROFEN600 M1 ORAL ×2 (08:58)
[2020-03-11] MEDS ORDERED: TYLENOL EXTRA500 MG ORAL (08:58)
[2020-03-11 09:09] VITALS: BP 123/65
--- NOTE | 2020-03-11 09:11 | Diagnostic Imaging Report ---
EXAM: XR Right Hand Complete, 3 or More Views CLINICAL HISTORY: INJ TECHNIQUE: Frontal, lateral and oblique views of the right hand. COMPARISON: No relevant prior studies available. FINDINGS: Bones/joints: Unremarkable. No acute fracture. No dislocation. Soft tissues: Unremarkable. No radiopaque foreign body. IMPRESSION: No fracture.
== END 2020-03-11 09:09 | disposition home or self-care (01) ==
LOC: EMR 08:36
DX: O26.90 Pregnancy related conditions, unspecified, unspecified trimester (principal); M79.644 Pain in right finger(s); Z3A.00 Weeks of gestation of pregnancy not specified
CPT/HCPCS: 99283

== ENCOUNTER 2020-03-25 13:33 | Emergency (ER) | payer MEDICARE, MEDICAID ==
[~2020-03-25] VITALS: Ht 144.8 cm; Wt 51.3 kg
[~2020-03-25 13:33] MED LIST changes: +IBUPROFEN600 M1 ORAL; +TYLENOL EXTRA500 MG ORAL
[2020-03-25 14:08] LABS: APPEARANCE,URINE CLEAR; BILIRUBIN, URINE NEGATIVE (NEGATIVE); COLOR,URINE PALE YELLOW; GLUCOSE, URINE (UA) NEGATIVE (NEGATIVE); KETONES,URINE NEGATIVE (NEGATIVE); LEUKOCYTE ESTERASE ,URINE 1+ (NEGATIVE); NITRITE,URINE NEGATIVE (NEGATIVE); PH,URINE 7 (4.5-8.0); PROTEIN,URINE NEGATIVE (NEGATIVE); UROBILINOGEN,URINE NORMAL MG/DL (0.0-1.0)
--- NOTE | 2020-03-25 14:35 | Emergency Room Report ---
History of Present Illness General Chief Complaint: Complications Present Illness HPI 29-year-old female presents to the emergency department reporting that she is at approximately 9 weeks into her . Patient reports abdominal cramping that is 6 out of 10 severity in the lower abdomen since last night. Patient reports 3 previous normal vaginal deliveries. Patient reports only complication during is that she usually requires IV iron because she is severely anemic. Patient reports she has been taking vitamins as well as iron. She denies nausea or vomiting. She denies fevers or chills, constipation or diarrhea. Patient denies vaginal bleeding or discharge. She states she is not sure what her blood type is but states she does not recall ever receiving any injections during consider delivery. SHe denies dizziness, dysuria, urinary frequency or urgency. SHe denies hematuria. Allergies: Coded Allergies: No Known Allergies (Unverified , 01/14/15) COVID-19 Screening Contact w/high risk pt: No Recent Travel to affected area: No Experienced COVID-19 symptoms?: No COVID-19 Testing performed ASBESTOS SIDING MECHANIC: No Patient History Past Medical History: see triage record Past Surgical History: none Pertinent Family History: none Now: No : 4 Para: 3 Reviewed Nursing Documentation: PMH: Agreed; PSxH: Agreed Review of Systems All Other Systems: negative except mentioned in HPI Physical Exam Vital Signs Date Time Temp Pulse Resp B/P (MAP) Pulse Ox O2 Delivery O2 Flow Rate FiO2 03/25/20 13:36 98.6 92 18 119/81 (94) 99 Room Air Sp02 EP Interpretation: reviewed, normal General Appearance: no apparent distress, alert, GCS 15, non-toxic Head: normocephalic, atraumatic Eyes: bilateral eye normal inspection, bilateral eye PERRL ENT: hearing grossly normal, normal voice Neck: full range of motion Respiratory: lungs clear, normal breath sounds, speaking full sentences Cardiovascular #1: regular rate, rhythm Gastrointestinal: normal bowel sounds, non tender, soft, non-distended, no guarding Rectal: deferred Genitourinary: normal inspection, no CVA tenderness, adnexa normal Musculoskeletal: back normal, normal range of motion, gait/station normal, non- tender Neurologic: alert, motor strength/tone normal, oriented x3, sensory intact, responsive, speech normal Psychiatric: judgement/insight normal Lymphatic: no adenopathy Medical Decision Making PA Attestation Dr. Min is my supervising Physician whom patient management has been discussed with. Diagnostic Impression: Primary Impression: Abdominal pain affecting ER Course 29-year-old female presents to the emergency department reporting that she is at approximately 9 weeks into her . Patient reports abdominal cramping that is 6 out of 10 severity in the lower abdomen since last night. Patient reports 3 previous normal vaginal deliveries. Patient reports only complication during is that she usually requires IV iron because she is severely anemic. Patient reports she has been taking vitamins as well as iron. She denies nausea or vomiting. She denies fevers or chills, constipation or diarrhea. Patient denies vaginal bleeding or discharge. She states she is not sure what her blood type is but states she does not recall ever receiving any injections during consider delivery. SHe denies dizziness, dysuria, urinary frequency or urgency. SHe denies hematuria. Ddx considered but are not limited to: Fibroid, ectopic , Fibroid, Spontaneous ,placenta previa, placenta abruptio Vital signs: are WNL, pt. is afebrile. H&PE are most consistent with: Possible Miscarriage. ORDERS: -CBC: Unremarkable, normal H & H -UA: Unremarkable -Urine hcg- Positive -Serum Hcg Quant: 704 -Pelvic US complete- NO obvious IUP, small structure that appears as an early ge st. sac. too small to measure. Exophytic cyst outside of the right ovary and scant free fluid in the cul-de-sac. -- Per US tech. ED INTERVENTIONS: None at this time. d/ w pt. regarding low HCG quant and no official IUP thus requiring serial repeat measurements and US's. Pt. verbalized her understanding and agreement with tx plan. Pt. reports having an OBGYN appt. on which is within 72 hours. -I do not identify an emergent condition at this time. With current presentation, pt. is stable for close outpatient follow up and conservative treatment. D/w pt. to return promptly to ED with worsening or new symptoms.- Pt. verbalizes' understanding and agreement with proposed treatment plan. DISCHARGE: At this time pt. is stable for d/c to home. Will provide printed patient care instructions, and any necessary prescriptions. Care plan and follow up instructions have been discussed with the patient prior to discharge. Labs Test 03/25/20 13:45 03/25/20 14:00 Urine Color Pale yellow Urine Appearance Clear Urine pH 7 (4.5-8.0) Urine Specific [place] 1.005 (1.005-1.035) Urine Protein Negative (NEGATIVE) Urine Glucose (UA) Negative (NEGATIVE) Urine Ketones Negative (NEGATIVE) Urine Blood 1+ (NEGATIVE) Urine Nitrite Negative (NEGATIVE) Urine Bilirubin Negative (NEGATIVE) Urine Urobilinogen Normal MG/DL (0.0-1.0) Urine Leukocyte Esterase 1+ (NEGATIVE) Urine RBC 0-2 /HPF (0 - 2) Urine WBC 0-2 /HPF (0 - 2) Urine Squamous Epithelial Cells Occasional /LPF Urine Bacteria None /HPF (NONE) Urine HCG, Qualitative Positive (NEGATIVE) White Blood Count 5.1 K/UL (4.8-10.8) Red Blood Count 5.18 M/UL (4.20-5.40) Hemoglobin 12.4 G/DL (12.0-16.0) Hematocrit 41.1 % (37.0-47.0) Mean Corpuscular Volume 79 FL (80-99) Mean Corpuscular Hemoglobin 24.0 PG (27.0-31.0) Mean Corpuscular Hemoglobin Concent 30.2 G/DL (32.0-36.0) Red Cell Distribution Width 14.1 % (11.6-14.8) Platelet Count 258 K/UL (150-450) Mean Platelet Volume 8.2 FL (6.5-10.1) Neutrophils (%) (Auto) 61.0 % (45.0-75.0) Lymphocytes (%) (Auto) 29.6 % (20.0-45.0) Monocytes (%) (Auto) 6.9 % (1.0-10.0) Eosinophils (%) (Auto) 1.1 % (0.0-3.0) Basophils (%) (Auto) 1.4 % (0.0-2.0) Sodium Level 139 MMOL/L (136-145) Potassium Level 3.4 MMOL/L (3.5-5.1) Chloride Level 104 MMOL/L (98-107) Carbon Dioxide Level 26 MMOL/L (21-32) Anion Gap 9 mmol/L (5-15) Blood Urea Nitrogen 5 mg/dL (7-18) Creatinine 0.8 MG/DL (0.55-1.30) Estimat Glomerular Filtration Rate > 60 mL/min (>60) Glucose Level 74 MG/DL (74-106) Calcium Level 8.9 MG/DL (8.5-10.1) Human Chorionic Gonadotropin, Quant 704 mIU/mL (1-6) CT/MRI/US Diagnostic Results CT/MRI/US Diagnostic Results : Imaging Test Ordered: Pelvis OB 1st trimester US Impression " IMPRESSION: Possible early gestational sac in the endometrial cavity, with mean sac diameter of 0.39 cm. No pole or yolk sac identified on this exam. Recommend correlation with serial beta hCG measurements and short-term follow-up exam if clinically indicated." --Per official radiology report- Please see report for specific details. Last Vital Signs Date Time Temp Pulse Resp B/P (MAP) Pulse Ox O2 Delivery O2 Flow Rate FiO2 03/25/20 13:36 98.6 92 18 119/81 (94) 99 Room Air Status: improved Disposition: HOME, SELF-CARE Condition: Stable Scripts Cmb#95/Iron/Fa/Dha ( + DHA COMBO PACK) 1 Each Combo..pkg 1 EACH PO DAILY, #1 PACK 3 Refills Prov: Gloria Coughlin 03/25/20 Referrals: NON PHYSICIAN (PCP) Patient Instructions: Abdominal Pain During , [id number] Additional Instructions: Take medications as directed. YOUR HCG QUANT LEVEL WAS : 704 today. - NO VISIBLE HAS BEEN SEEN ON THE ULTRASOUND. YOU WILL NEED REPEAT HCG LEVEL TESTING AND ULTRASOUND IN 72 hours. Follow up with a OBGYN within 3 days, even if your symptoms have resolved. Return sooner to ED if new symptoms occur, or current symptoms become worse. - Please note that this Emergency Department Report was dictated using [employer] research assistant technology software, occasionally this can lead to erroneous entry secondary to interpretation by the dictation equipment. Gloria Coughlin Mar 25, 2020 14:35
[2020-03-25 14:46] LABS: BASOPHILS % (AUTO) 1.4 % (0.0-2.0); EOSINOPHILS % (AUTO) 1.1 % (0.0-3.0); HEMATOCRIT 41.1 % (37.0-47.0); HEMOGLOBIN 12.4 G/DL (12.0-16.0); LYMPHOCYTES % (AUTO) 29.6 % (20.0-45.0); MEAN CORPUSCULAR VOLUME 79 FL (80-99); MONOCYTES % (AUTO) 6.9 % (1.0-10.0); PLATELET COUNT 258 K/UL (150-450); RED BLOOD COUNT 5.18 M/UL (4.20-5.40); RED CELL DISTRIBUTION WIDTH 14.1 % (11.6-14.8); WHITE BLOOD COUNT 5.1 K/UL (4.8-10.8)
[2020-03-25 14:51] LABS: ANION GAP 9 mmol/L (5-15); BLOOD UREA NITROGEN 5 mg/dL (7-18); CALCIUM 8.9 MG/DL (8.5-10.1); CARBON DIOXIDE 26 MMOL/L (21-32); CHLORIDE 104 MMOL/L (98-107); CREATININE 0.8 MG/DL (0.55-1.30); POTASSIUM 3.4 MMOL/L (3.5-5.1); SODIUM 139 MMOL/L (136-145)
[2020-03-25] MEDS ORDERED: PRENATAL + DHA1 EAC2 PO (16:41)
--- NOTE | 2020-03-25 16:53 | Diagnostic Imaging Report ---
EXAM: US First Trimester , Transabdominal CLINICAL HISTORY: PAIN TECHNIQUE: Real-time transabdominal obstetrical ultrasound of the maternal pelvis and a first trimester with image documentation. COMPARISON: OB ultrasound on 09/19/2019 FINDINGS: Uterus: Measures 9.8 x 5.6 cm. Nabothian cyst in the cervix. Possible early gestational sac in the endometrial cavity, with mean sac diameter of 0.39 cm. No pole or yolk sac identified on this exam. Cervix is long and closed. Placenta/amniotic fluid: Cannot be adequately evaluated due to the early gestational age. Ovaries: The right ovary measures 3.1 x 1.4 x 2.4 cm. The left ovary measures 4.8 x 1.4 x 3.3 cm. The ovaries demonstrate normal color flow. Other: Trace free fluid is identified. Cystic structure in the right adnexa separate from the right ovary measures up to 2.1 cm and could represent a paraovarian cyst. LMP: 01/17/2020 GA by LMP: 9 weeks 5 days FEROZ by LMP: 12/23/2020 Average ultrasound age: Gestational sac too small to correlate with gestational age IMPRESSION: Possible early gestational sac in the endometrial cavity, with mean sac diameter of 0.39 cm. No pole or yolk sac identified on this exam. Recommend correlation with serial beta hCG measurements and short-term follow-up exam if clinically indicated.
[2020-03-25 17:05] VITALS: BP 115/72
== END 2020-03-25 17:05 | disposition home or self-care (01) ==
LOC: EMR 13:57
DX: O26.891 Other specified pregnancy related conditions, first trimester (principal); Z3A.09 9 weeks gestation of pregnancy; R10.30 Lower abdominal pain, unspecified
CPT/HCPCS: 36415; 76801; 76817; 80048; 81003; 81025; 84702; 85025; 99284

== ENCOUNTER 2020-04-02 17:37 | Emergency (ER) | payer MEDICARE, MEDICAID ==
[~2020-04-02] VITALS: Ht 144.8 cm; Wt 52.2 kg
[~2020-04-02 17:37] MED LIST changes: +PRENATAL + DHA1 EAC2 PO
--- NOTE | 2020-04-02 18:21 | NUR ---
ED Nurse Note: Pt walked in to ED c/o low abdominal cramping and headache onset this AM. Denies any vaginal bleeding. Pt is about 6 weeks . Pt is up to date with her visits. AAOx4, verbally responsive. No SOB. Afebrile. ERPA at bedside.
--- NOTE | 2020-04-02 18:35 | NUR ---
ED Nurse Note: IV line established. Blood and urine sent to lab.
[2020-04-02 18:54] LABS: APPEARANCE,URINE SLIGHTLY CLOUDY; BILIRUBIN, URINE NEGATIVE (NEGATIVE); COLOR,URINE PALE YELLOW; GLUCOSE, URINE (UA) NEGATIVE (NEGATIVE); KETONES,URINE NEGATIVE (NEGATIVE); LEUKOCYTE ESTERASE ,URINE 3+ (NEGATIVE); NITRITE,URINE NEGATIVE (NEGATIVE); PH,URINE 6 (4.5-8.0); PROTEIN,URINE NEGATIVE (NEGATIVE); UROBILINOGEN,URINE NORMAL MG/DL (0.0-1.0)
--- NOTE | 2020-04-02 18:59 | Emergency Room Report ---
History of Present Illness General Chief Complaint: Complications Source: Patient Present Illness HPI 29-year-old female presents to the emergency department complaining of being in the early stages of her first trimester she states according to last menstrual period she is approximately 6 weeks along. Patient reports she is having abdominal pain, cramping as well as a 6/10 in severity headache. Patient states she is not taking any medications for her symptoms other than vitamins for which she has been taking daily. She denies nausea or vomiting, fevers, chills, abdominal tenderness, constipation or diarrhea. She denies urinary frequency, urgency, dysuria or hematuria. She is . She denies dizziness, sudden onset of her headache, neck pain/stiffness or photophobia. She denies dizziness. She denies vaginal d/c or vaginal bleeding. Allergies: Coded Allergies: No Known Allergies (Unverified , 01/14/15) COVID-19 Screening Contact w/high risk pt: No Recent Travel to affected area: No Experienced COVID-19 symptoms?: Yes COVID-19 Testing performed ENVIRONMENTAL HEALTH MANAGER: No Patient History Past Medical History: see triage record Past Surgical History: none Pertinent Family History: none Last Menstrual Period: 02/04 Now: Yes : 5 Para: 3 Reviewed Nursing Documentation: PMH: Agreed; PSxH: Agreed Nursing Documentation-PMH Past Medical History: No History, Except For Hx Cardiac Problems: No - Anemia Hx Hypertension: No Hx Pacemaker: No Hx Asthma: No Hx COPD: No Hx Diabetes: No Hx Cancer: No Hx Gastrointestinal Problems: No Hx Dialysis: No History Of Psychiatric Problem: No Hx Neurological Problems: No Hx Cerebrovascular Accident: No Hx Seizures: No Review of Systems All Other Systems: negative except mentioned in HPI Physical Exam Vital Signs Date Time Temp Pulse Resp B/P (MAP) Pulse Ox O2 Delivery O2 Flow Rate FiO2 04/02/20 18:16 99.1 88 16 104/75 (85) 97 Room Air Sp02 EP Interpretation: reviewed, normal General Appearance: no apparent distress, alert, GCS 15, non-toxic Head: normocephalic, atraumatic Eyes: bilateral eye normal inspection, bilateral eye PERRL, bilateral eye other - no photophobia ENT: hearing grossly normal, normal voice Neck: full range of motion, no meningismus, no bony tend Respiratory: lungs clear, normal breath sounds, speaking full sentences Cardiovascular #1: regular rate, rhythm, no edema Gastrointestinal: normal bowel sounds, non tender, soft, non-distended, no guarding Rectal: deferred Genitourinary: normal inspection, no CVA tenderness Musculoskeletal: back normal, normal range of motion, gait/station normal, non- tender Neurologic: alert, motor strength/tone normal, oriented x3, sensory intact, responsive, speech normal Psychiatric: judgement/insight normal Skin: no rash, normal color Medical Decision Making PA Attestation Dr. De Souza is my supervising Physician whom patient management has been discussed with. Diagnostic Impression: Primary Impression: Abdominal pain affecting Additional Impression: UTI (urinary tract infection) Qualified Codes: N30.01 - Acute cystitis with hematuria ER Course 29-year-old female presents to the emergency department complaining of being in the early stages of her first trimester she states according to last menstrual period she is approximately 6 weeks along. Patient reports she is having abdominal pain, cramping as well as a 6/10 in severity headache. Patient states she is not taking any medications for her symptoms other than vitamins for which she has been taking daily. She denies nausea or vomiting, fevers, chills, abdominal tenderness, constipation or diarrhea. She denies urinary frequency, urgency, dysuria or hematuria. She is . She denies dizziness, sudden onset of her headache, neck pain/stiffness or photophobia. She denies dizziness. She denies vaginal d/c or vaginal bleeding. Ddx considered but are not limited to: Fibroid, ectopic , Fibroid, Spontaneous ,placenta previa, placenta abruptio, venous sinus thrombosis, eclampsia, UTI, migraine just to name a few. Vital signs: are WNL, pt. is afebrile H&PE are most consistent with: Abdominal pain and headache and a female that has not yet had IUP established. She is in no acute distress, nontoxic in appearance. No meningismus. ORDERS: -CBC: WNL -CMP: WNL -UA: INFECTION: moderate bacteria with increased inflammatory markers. -Serum Hcg Quant: 9987 -Pelvic US complete-gestational sac without definitive yolk or heart rate estimated at 5 weeks gestation. in addition to a cyst on the right ovary. ED INTERVENTIONS: None at this time. DISCHARGE: At this time pt. is stable for d/c to home. Will provide printed patient care instructions, and any necessary prescriptions. Care plan and follow up instructions have been discussed with the patient prior to discharge. Labs Test 04/02/20 18:23 04/02/20 18:40 Urine Color Pale yellow Urine Appearance Slightly cloudy Urine pH 6 (4.5-8.0) Urine Specific [place] 1.020 (1.005-1.035) Urine Protein Negative (NEGATIVE) Urine Glucose (UA) Negative (NEGATIVE) Urine Ketones Negative (NEGATIVE) Urine Blood 2+ (NEGATIVE) Urine Nitrite Negative (NEGATIVE) Urine Bilirubin Negative (NEGATIVE) Urine Urobilinogen Normal MG/DL (0.0-1.0) Urine Leukocyte Esterase 3+ (NEGATIVE) Urine RBC 10-15 /HPF (0 - 2) Urine WBC 5-10 /HPF (0 - 2) Urine Squamous Epithelial Cells Many /LPF (NONE/OCC) Urine Bacteria Moderate /HPF (NONE) White Blood Count 9.2 K/UL (4.8-10.8) Red Blood Count 5.16 M/UL (4.20-5.40) Hemoglobin 12.1 G/DL (12.0-16.0) Hematocrit 39.6 % (37.0-47.0) Mean Corpuscular Volume 77 FL (80-99) Mean Corpuscular Hemoglobin 23.4 PG (27.0-31.0) Mean Corpuscular Hemoglobin Concent 30.5 G/DL (32.0-36.0) Red Cell Distribution Width 14.6 % (11.6-14.8) Platelet Count 282 K/UL (150-450) Mean Platelet Volume 8.1 FL (6.5-10.1) Neutrophils (%) (Auto) 68.4 % (45.0-75.0) Lymphocytes (%) (Auto) 24.1 % (20.0-45.0) Monocytes (%) (Auto) 5.4 % (1.0-10.0) Eosinophils (%) (Auto) 0.4 % (0.0-3.0) Basophils (%) (Auto) 1.8 % (0.0-2.0) Sodium Level 141 MMOL/L (136-145) Potassium Level 3.1 MMOL/L (3.5-5.1) Chloride Level 102 MMOL/L (98-107) Carbon Dioxide Level 27 MMOL/L (21-32) Anion Gap 12 mmol/L (5-15) Blood Urea Nitrogen 7 mg/dL (7-18) Creatinine 0.8 MG/DL (0.55-1.30) Estimat Glomerular Filtration Rate > 60 mL/min (>60) Glucose Level 93 MG/DL (74-106) Calcium Level 9.1 MG/DL (8.5-10.1) Total Bilirubin 0.2 MG/DL (0.2-1.0) Aspartate Amino Transf (AST/SGOT) 24 U/L (15-37) Alanine Aminotransferase (ALT/SGPT) 19 U/L (12-78) Alkaline Phosphatase 47 U/L (46-116) Total Protein 8.2 G/DL (6.4-8.2) Albumin 4.3 G/DL (3.4-5.0) Globulin 3.9 g/dL Albumin/Globulin Ratio 1.1 (1.0-2.7) Lipase 172 U/L (73-393) CT/MRI/US Diagnostic Results CT/MRI/US Diagnostic Results : Imaging Test Ordered: Pelvis US: OB first trimester. Impression " Live IUP with gestational sac and yolk sac, but no pole. This would be a to 5-1/2 weeks." --Per official radiology report- Please see report for specific details. Last Vital Signs Date Time Temp Pulse Resp B/P (MAP) Pulse Ox O2 Delivery O2 Flow Rate FiO2 04/02/20 18:16 99.1 88 16 104/75 (85) 97 Room Air Disposition: HOME, SELF-CARE Condition: Stable Patient Instructions: and Urinary Tract Infection Additional Instructions: Take medications as directed. Follow up with a OBGYN within 3-5 days, even if your symptoms have resolved. Return sooner to ED if new symptoms occur, or current symptoms become worse. - Please note that this Emergency Department Report was dictated using [employer] team lead technology software, occasionally this can lead to erroneous entry secondary to interpretation by the dictation equipment. Gloria Coughlin Apr 02, 2020 18:59
[2020-04-02 19:15] LABS: BASOPHILS % (AUTO) 1.8 % (0.0-2.0); EOSINOPHILS % (AUTO) 0.4 % (0.0-3.0); HEMATOCRIT 39.6 % (37.0-47.0); HEMOGLOBIN 12.1 G/DL (12.0-16.0); LYMPHOCYTES % (AUTO) 24.1 % (20.0-45.0); MEAN CORPUSCULAR VOLUME 77 FL (80-99); MONOCYTES % (AUTO) 5.4 % (1.0-10.0); NEUTROPHILS % (AUTO) 68.4 % (45.0-75.0); PLATELET COUNT 282 K/UL (150-450); RED BLOOD COUNT 5.16 M/UL (4.20-5.40); RED CELL DISTRIBUTION WIDTH 14.6 % (11.6-14.8); WHITE BLOOD COUNT 9.2 K/UL (4.8-10.8)
[2020-04-02 19:36] LABS: ANION GAP 12 mmol/L (5-15); BLOOD UREA NITROGEN 7 mg/dL (7-18); CALCIUM 9.1 MG/DL (8.5-10.1); CARBON DIOXIDE 27 MMOL/L (21-32); CHLORIDE 102 MMOL/L (98-107); CREATININE 0.8 MG/DL (0.55-1.30); POTASSIUM 3.1 MMOL/L (3.5-5.1); SODIUM 141 MMOL/L (136-145)
[2020-04-02 19:41] LABS: ALANINE AMINOTRANSFERASE 19 U/L (12-78); ALBUMIN 4.3 G/DL (3.4-5.0); ALBUMIN/GLOBULIN RATIO 1.1 (1.0-2.7); ALKALINE PHOSPHATASE 47 U/L (46-116); ASPARTATE AMINO TRANSFERASE 24 U/L (15-37); BILIRUBIN,TOTAL 0.2 MG/DL (0.2-1.0)
[2020-04-02] MEDS ORDERED: Cephalexin 500mg cap ORAL ONE (19:45)
--- NOTE | 2020-04-02 20:00 | Diagnostic Imaging Report ---
EXAM: US First Trimester , Transabdominal and Transvaginal CLINICAL HISTORY: ABD PAIN TECHNIQUE: Real-time transabdominal and transvaginal obstetrical ultrasound of the maternal pelvis and a first trimester with image documentation. Transvaginal imaging was used for better evaluation of the fetus and adnexa. COMPARISON: 03/25/20. FINDINGS: Gestation: Intrauterine gestational sac with a yolk sac. No pole. No clear leila-gestational hematoma. Placenta/amniotic fluid: Cannot be adequately evaluated due to the early gestational age. Uterus/cervix: Cervical nabothian cyst. Ovaries: 1.8 cm right ovarian cyst. No sonographic findings of torsion. Free fluid: No free fluid. IMPRESSION: Live IUP with gestational sac and yolk sac, but no pole. This would a to 5-1/2 weeks.
[2020-04-02] MEDS ORDERED: CEPHALEXIN500 MG ORAL (20:21)
[2020-04-02] MEDS ORDERED: TYLENOL EXTRA500 MG ORAL (20:21)
[2020-04-02 20:30] VITALS: BP 110/78
--- NOTE | 2020-04-02 20:30 | NUR ---
ER DISCHARGE NOTE: Patient is cleared to be discharged per ERMD, pt is aox4, on room air, with stable vital signs. pt was given dc and prescription instructions, pt was able to verbalize understanding, pt id band and iv site removed without complications. pt is able to ambulate with steady gait. pt took all belongings. pt stable upon discharge.
== END 2020-04-02 20:30 | disposition home or self-care (01) ==
LOC: EMR 19:41
DX: O26.891 Other specified pregnancy related conditions, first trimester (principal); R10.9 Unspecified abdominal pain; O23.41 Unspecified infection of urinary tract in pregnancy, first trimester; Z3A.01 Less than 8 weeks gestation of pregnancy
CPT/HCPCS: 36415; 76801; 76817; 80053; 81003; 83690; 84702; 85025; 87086; 99284

== ENCOUNTER 2020-04-04 18:07 | Emergency (ER) | payer MEDICARE, MEDICAID ==
[~2020-04-04] VITALS: Ht 144.8 cm; Wt 52.6 kg
--- NOTE | 2020-04-04 18:30 | NUR ---
ED Nurse Note: Pt walked in from home c/o blood in her urine. Pt was seen here recently for abd cramps and prescribed abx for UTI. Respirations even and unlabored on room air. Vitals stable as documented. A+Ox, speaking in complete sentences.
--- NOTE | 2020-04-04 18:49 | NUR ---
ED Nurse Note: US @ bedside. Pt is 6 weeks
[2020-04-04 18:53] LABS: APPEARANCE,URINE CLEAR; BILIRUBIN, URINE NEGATIVE (NEGATIVE); COLOR,URINE PALE YELLOW; GLUCOSE, URINE (UA) NEGATIVE (NEGATIVE); KETONES,URINE NEGATIVE (NEGATIVE); LEUKOCYTE ESTERASE ,URINE 3+ (NEGATIVE); NITRITE,URINE NEGATIVE (NEGATIVE); PH,URINE 7 (4.5-8.0); PROTEIN,URINE NEGATIVE (NEGATIVE); UROBILINOGEN,URINE NORMAL MG/DL (0.0-1.0)
--- NOTE | 2020-04-04 19:03 | Emergency Room Report ---
History of Present Illness General Chief Complaint: Complications Source: Patient Present Illness HPI 29 YO female who is and currently , presents to the ED c/o vaginal bleeding: x 1 day, estimated amount: as very little, pt. reports having some BRB on the toilet paper after wiping earlier today. Pt. denies constipation or diarrhea. She denies abdominal pain or tenderness. Pt. reports several days ago having 7/10 in severity cramping/ lower abdominal fullness. Pt. denies fevers or chills. She denies dysuria, hematuria, urgency or frequency. Pt. denies vaginal DC other than bleeding today. Pmhx only of anemia. Pt. reports her next OBGYN appt. is not until Apr 18, 2020. Allergies: Coded Allergies: No Known Allergies (Unverified , 01/14/15) COVID-19 Screening Contact w/high risk pt: No Recent Travel to affected area: No Experienced COVID-19 symptoms?: No COVID-19 Testing performed LABORER PIE BAKERY: No Patient History Past Medical History: see triage record Past Surgical History: none Pertinent Family History: none Last Menstrual Period: 02/04 : 5 Para: 3 Reviewed Nursing Documentation: PMH: Agreed; PSxH: Agreed Nursing Documentation-PMH Past Medical History: No History, Except For Hx Cardiac Problems: No - Anemia, Hx Hypertension: No Hx Pacemaker: No Hx Asthma: No Hx COPD: No Hx Diabetes: No Hx Cancer: No Hx Gastrointestinal Problems: No Hx Dialysis: No Hx Neurological Problems: No Hx Cerebrovascular Accident: No Hx Seizures: No Review of Systems All Other Systems: negative except mentioned in HPI Physical Exam Vital Signs Date Time Temp Pulse Resp B/P (MAP) Pulse Ox O2 Delivery O2 Flow Rate FiO2 04/04/20 18:20 98.4 84 18 110/75 (87) 97 Nasal Cannula Sp02 EP Interpretation: reviewed, normal General Appearance: no apparent distress, alert, GCS 15, non-toxic Head: normocephalic, atraumatic Eyes: bilateral eye normal inspection, bilateral eye PERRL ENT: hearing grossly normal, normal voice Neck: full range of motion Respiratory: chest non-tender, lungs clear, normal breath sounds, speaking full sentences Cardiovascular #1: regular rate, rhythm Gastrointestinal: normal bowel sounds, non tender, soft, non-distended, no guarding Genitourinary: normal inspection, no CVA tenderness, os closed, other - scant BRB in vaginal vault. Musculoskeletal: back normal, normal range of motion, gait/station normal, non- tender Neurologic: alert, motor strength/tone normal, oriented x3, sensory intact, responsive, speech normal Psychiatric: judgement/insight normal Skin: no rash, normal color Lymphatic: no adenopathy Medical Decision Making PA Attestation Dr. De Souza is my supervising Physician whom patient management has been discussed with. Diagnostic Impression: Primary Impression: Threatened miscarriage in early Additional Impression: Trichomonas infection ER Course 29 YO female who is and currently , presents to the ED c/o vaginal bleeding: x 1 day, estimated amount: as very little, pt. reports having some BRB on the toilet paper after wiping earlier today. Pt. denies constipation or diarrhea. She denies abdominal pain or tenderness. Pt. reports several days ago having 7/10 in severity cramping/ lower abdominal fullness. Pt. denies fevers or chills. She denies dysuria, hematuria, urgency or frequency. Pt. denies vaginal DC other than bleeding today. Pmhx only of anemia. Pt. reports her next OBGYN appt. is not until Apr 18, 2020. Ddx considered but are not limited to: Fibroid, ectopic , Fibroid, Spontaneous ,placenta previa, placenta abruptio Vital signs: are WNL, pt. is afebrile H&PE are most consistent with: spotting during early , ORDERS: -CBC: Pending -PT/PTT: Pending -UA: Few Trichomonas, wbc's ,and RBC/blood. -Serum Hcg Quant: Pending at time of sign out ([id number]) - Blood/RH type and screen- see attached labs ( B Positive) -Pelvic US complete- chorionic sac, without embryonic pole or heart tones/rate. right ovarian luteal cyst. Estimated to be 5 weeks, 1 day ED INTERVENTIONS: None at this time. D/w pt. need for close outpatient OBGYN follow up. DISPOSITION: pt. signed out to attending physician pending labs. Labs Test 04/04/20 18:24 04/04/20 19:20 Urine Color Pale yellow Urine Appearance Clear Urine pH 7 (4.5-8.0) Urine Specific [place] 1.010 (1.005-1.035) Urine Protein Negative (NEGATIVE) Urine Glucose (UA) Negative (NEGATIVE) Urine Ketones Negative (NEGATIVE) Urine Blood 5+ (NEGATIVE) Urine Nitrite Negative (NEGATIVE) Urine Bilirubin Negative (NEGATIVE) Urine Urobilinogen Normal MG/DL (0.0-1.0) Urine Leukocyte Esterase 3+ (NEGATIVE) Urine RBC 5-10 /HPF (0 - 2) Urine WBC 10-15 /HPF (0 - 2) Urine Squamous Epithelial Cells Moderate /LPF (NONE/OCC) Urine Bacteria Few /HPF (NONE) Urine Trichomonas Few /HPF (NONE) White Blood Count 5.9 K/UL (4.8-10.8) Red Blood Count 4.78 M/UL (4.20-5.40) Hemoglobin 11.3 G/DL (12.0-16.0) Hematocrit 36.2 % (37.0-47.0) Mean Corpuscular Volume 76 FL (80-99) Mean Corpuscular Hemoglobin 23.7 PG (27.0-31.0) Mean Corpuscular Hemoglobin Concent 31.3 G/DL (32.0-36.0) Red Cell Distribution Width 14.1 % (11.6-14.8) Platelet Count 269 K/UL (150-450) Mean Platelet Volume 8.1 FL (6.5-10.1) Neutrophils (%) (Auto) 44.7 % (45.0-75.0) Lymphocytes (%) (Auto) 45.2 % (20.0-45.0) Monocytes (%) (Auto) 7.0 % (1.0-10.0) Eosinophils (%) (Auto) 1.4 % (0.0-3.0) Basophils (%) (Auto) 1.7 % (0.0-2.0) Prothrombin Time 11.0 SEC (9.30-11.50) Prothromb Time International Ratio 1.0 (0.9-1.1) Activated Partial Thromboplast Time 29 SEC (23-33) Sodium Level 136 MMOL/L (136-145) Potassium Level 4.2 MMOL/L (3.5-5.1) Chloride Level 103 MMOL/L (98-107) Carbon Dioxide Level 27 MMOL/L (21-32) Anion Gap 7 mmol/L (5-15) Blood Urea Nitrogen 6 mg/dL (7-18) Creatinine 0.6 MG/DL (0.55-1.30) Estimat Glomerular Filtration Rate > 60 mL/min (>60) Glucose Level 88 MG/DL (74-106) Calcium Level 9.0 MG/DL (8.5-10.1) Total Bilirubin 0.3 MG/DL (0.2-1.0) Aspartate Amino Transf (AST/SGOT) 33 U/L (15-37) Alanine Aminotransferase (ALT/SGPT) 16 U/L (12-78) Alkaline Phosphatase 40 U/L (46-116) Total Protein 7.4 G/DL (6.4-8.2) Albumin 4.0 G/DL (3.4-5.0) Globulin 3.4 g/dL Albumin/Globulin Ratio 1.2 (1.0-2.7) Human Chorionic Gonadotropin, Quant 57207 mIU/mL (1-6) CT/MRI/US Diagnostic Results CT/MRI/US Diagnostic Results : Imaging Test Ordered: Pelvic US OB Impression " IMPRESSION: A chorionic sac with yolk sac is seen within the uterus. No evidence for embryonic pole or heart tones at this time. The mean sac diameter measures 11 mm which corresponds to an estimated gestational age of 5 weeks and 1 day." --Per official radiology report- Please see report for specific details. Last Vital Signs Date Time Temp Pulse Resp B/P (MAP) Pulse Ox O2 Delivery O2 Flow Rate FiO2 04/04/20 18:20 98.4 84 18 110/75 (87) 97 Nasal Cannula Disposition: HOME, SELF-CARE Condition: Critical Signed Out To: Dr. De Souza Scripts Metronidazole* (FLAGYL*) 500 Mg Tablet 500 MG ORAL THREE TIMES A DAY, #21 TAB Prov: Addi De Souza MD 04/04/20 Referrals: [facility],REFERRING (PCP) Additional Instructions: Take medications as directed. Follow up with a OBGYN within 3 days, even if your symptoms have resolved. Return sooner to ED if new symptoms occur, or current symptoms become worse. - Please note that this Emergency Department Report was dictated using [employer] acquisition analyst technology software, occasionally this can lead to erroneous entry secondary to interpretation by the dictation equipment. Gloria Coughlin Apr 04, 2020 19:03
--- NOTE | 2020-04-04 19:11 | NUR ---
HAND-OFF: Report given to FRANKLYN Mary. Pt in stable condition; plan of care endorsed.
--- NOTE | 2020-04-04 19:20 | NUR ---
ED Nurse Note: Recieved report from am nurse to resume care, pt in room completing ultrasound being done at bedside, started IV line and labs drawn, pt denies active bleeding or pain but states "i just dont feel well", will resume care as ordered and closely monitor.
[2020-04-04 19:45] VITALS: BP 119/79
--- NOTE | 2020-04-04 19:57 | Diagnostic Imaging Report ---
EXAM: US First Trimester , Transabdominal and Transvaginal CLINICAL HISTORY: ABD PAIN TECHNIQUE: Real-time transabdominal and transvaginal obstetrical ultrasound of the maternal pelvis and a first trimester with image documentation. Transvaginal imaging was used for better evaluation of the fetus and adnexa. COMPARISON: 04/02/20. FINDINGS: Gestation: A chorionic sac with yolk sac is seen within the uterus. No evidence for embryonic pole or heart tones at this time. The mean sac diameter measures 11 mm which corresponds to an estimated gestational age of 5 weeks and 1 day. Placenta/amniotic fluid: Cannot be adequately evaluated due to the early gestational age. Uterus/cervix: Nabothian cyst in the cervix. No myometrial mass. Ovaries: 1.8 x 1.7 x 2.1 cm cyst in the right ovary which is likely related to a corpus luteal cyst. The right ovary is otherwise unremarkable and demonstrates vascular flow. The left ovary is unremarkable and demonstrates vascular flow. Free fluid: No evidence for free fluid. IMPRESSION: A chorionic sac with yolk sac is seen within the uterus. No evidence for embryonic pole or heart tones at this time. The mean sac diameter measures 11 mm which corresponds to an estimated gestational age of 5 weeks and 1 day.
[2020-04-04 20:16] LABS: BASOPHILS % (AUTO) 1.7 % (0.0-2.0); EOSINOPHILS % (AUTO) 1.4 % (0.0-3.0); HEMATOCRIT 36.2 % (37.0-47.0); HEMOGLOBIN 11.3 G/DL (12.0-16.0); LYMPHOCYTES % (AUTO) 45.2 % (20.0-45.0); MEAN CORPUSCULAR VOLUME 76 FL (80-99); NEUTROPHILS % (AUTO) 44.7 % (45.0-75.0); PLATELET COUNT 269 K/UL (150-450); RED BLOOD COUNT 4.78 M/UL (4.20-5.40); RED CELL DISTRIBUTION WIDTH 14.1 % (11.6-14.8); WHITE BLOOD COUNT 5.9 K/UL (4.8-10.8)
[2020-04-04 20:26] LABS: ANION GAP 7 mmol/L (5-15); BLOOD UREA NITROGEN 6 mg/dL (7-18); CARBON DIOXIDE 27 MMOL/L (21-32); CHLORIDE 103 MMOL/L (98-107); CREATININE 0.6 MG/DL (0.55-1.30); POTASSIUM 4.2 MMOL/L (3.5-5.1); SODIUM 136 MMOL/L (136-145)
[2020-04-04 20:30] LABS: ALANINE AMINOTRANSFERASE 16 U/L (12-78); ALBUMIN/GLOBULIN RATIO 1.2 (1.0-2.7); ALKALINE PHOSPHATASE 40 U/L (46-116); ASPARTATE AMINO TRANSFERASE 33 U/L (15-37); BILIRUBIN,TOTAL 0.3 MG/DL (0.2-1.0)
[2020-04-04] MEDS ORDERED: METRONIDAZOLE500 MG ORAL (21:21)
[2020-04-04 21:30] VITALS: BP 121/70
[2020-04-04 21:40] VITALS: BP 121/70
== END 2020-04-04 21:40 | disposition home or self-care (01) ==
LOC: EMR 18:43
DX: O20.0 Threatened abortion (principal); O98.811 Other maternal infectious and parasitic diseases complicating pregnancy, first trimester; O34.81 Maternal care for other abnormalities of pelvic organs, first trimester; A59.9 Trichomoniasis, unspecified; N88.8 Other specified noninflammatory disorders of cervix uteri; N83.11 Corpus luteum cyst of right ovary; Z3A.01 Less than 8 weeks gestation of pregnancy
CPT/HCPCS: 36415; 76801; 76817; 80053; 81003; 84702; 85025; 85610; 85730; 86900; 86901; 87086; 99284

== ENCOUNTER 2020-04-18 20:43 | Emergency (ER) | payer MEDICARE, MEDICAID ==
[~2020-04-18] VITALS: Ht 144.8 cm; Wt 51.7 kg
[~2020-04-18 20:43] MED LIST changes: +METRONIDAZOLE500 MG ORAL
--- NOTE | 2020-04-18 20:50 | Emergency Room Report ---
History of Present Illness General Chief Complaint: Complications Source: Patient Present Illness HPI Disclaimer: Please note that this report is being documented using [employer] technology. This can lead to erroneous entry secondary to incorrect interpretation by the dictating instrument. HPI: 29-year-old female at 7 weeks gestation presents for evaluation of spotting. Patient is had intermittent spotting during the entire . She has been seen at this emergency department multiple times as well as her OB office today. She states an ultrasound performed at her FIRE ENGINE OPERATOR office is was unremarkable. Blood type is B+. Denies abdominal pain or cramping. Denies vaginal discharge. Denies dysuria or hematuria. Denies fever or chills. PMH: Reviewed PSH: Reviewed Allergies: Reviewed Social Hx: Reviewed Allergies: Coded Allergies: No Known Allergies (Unverified , 01/14/15) COVID-19 Screening Contact w/high risk pt: No Recent Travel to affected area: No Experienced COVID-19 symptoms?: No COVID-19 Testing performed SOFTWARE TEST ENGINEER: No Patient History Now: Yes Nursing Documentation-PMH Hx Cardiac Problems: No - Anemia, Hx Hypertension: No Hx Pacemaker: No Hx Asthma: No Hx COPD: No Hx Diabetes: No Hx Cancer: No Hx Gastrointestinal Problems: No Hx Dialysis: No Hx Neurological Problems: No Hx Cerebrovascular Accident: No Hx Seizures: No Review of Systems All Other Systems: negative except mentioned in HPI Physical Exam Vital Signs Date Time Temp Pulse Resp B/P (MAP) Pulse Ox O2 Delivery O2 Flow Rate FiO2 //20 20:45 Room Air General: Awake and alert, no acute distress HEENT: NC/AT. EOMI. Cardiovascular: RRR. S1 and S2 normal. No murmur appreciated Resp: Normal work of breathing. No cough, wheezing or crackles appreciated Abdomen: Abdomen is soft, nondistended. Nontender Skin: Intact. No abrasions, laceration or rash over the exposed skin MSK: Normal tone and bulk. Moving all extremities. No obvious deformity. Neuro: Awake and alert. Mentating appropriately. Medical Decision Making Diagnostic Impression: Primary Impression: Incomplete ER Course 29-year-old female reported 7 weeks gestation presents for vaginal bleeding. Differential includes was not limited to threatened , inevitable , incomplete , UTI, placenta previa, placental abruption, among others. Preliminary ultrasound interpretation shows no gestational sac. Based on prior ultrasound imaging in our ED gestational sac on previous visit. Reports today's FIRE ENGINE OPERATOR this ultrasound was normal though she was put on bedrest by FIRE ENGINE OPERATOR. Appears to be a incomplete . in shop service technician noted bleeding during exam. She is passing clots and bleeding in the ED. Initial hemoglobin in normal limits. Patient is denying pain. Denies dizziness, lightheadedness, nausea, vomiting or other symptoms at this time. Stable for discharge and follow up with OBGYN. Copy in imaging report will be provided to patient when finalized. Laboratory Tests Test 04/18/20 21:00 04/18/20 22:55 White Blood Count 5.3 K/UL (4.8-10.8) Red Blood Count 5.30 M/UL (4.20-5.40) Hemoglobin 12.6 G/DL (12.0-16.0) Hematocrit 39.8 % (37.0-47.0) Mean Corpuscular Volume 75 FL (80-99) L Mean Corpuscular Hemoglobin 23.8 PG (27.0-31.0) L Mean Corpuscular Hemoglobin Concent 31.7 G/DL (32.0-36.0) L Red Cell Distribution Width 14.2 % (11.6-14.8) Platelet Count 301 K/UL (150-450) Mean Platelet Volume 8.4 FL (6.5-10.1) Neutrophils (%) (Auto) 41.3 % (45.0-75.0) L Lymphocytes (%) (Auto) 47.3 % (20.0-45.0) H Monocytes (%) (Auto) 8.1 % (1.0-10.0) Eosinophils (%) (Auto) 1.7 % (0.0-3.0) Basophils (%) (Auto) 1.6 % (0.0-2.0) Prothrombin Time 11.0 SEC (9.30-11.50) Prothrombin Time INR 1.0 (0.9-1.1) Activated Partial Thromboplast Time 28 SEC (23-33) Urine Color Red Urine Appearance Turbid Urine pH 8 (4.5-8.0) Urine Specific [place] 1.010 (1.005-1.035) Urine Protein 4+ (NEGATIVE) H Urine Glucose (UA) 1+ (NEGATIVE) H Urine Ketones Negative (NEGATIVE) Urine Blood 5+ (NEGATIVE) H Urine Nitrite Positive (NEGATIVE) H Urine Bilirubin Negative (NEGATIVE) Urine Urobilinogen Normal MG/DL (0.0-1.0) Urine Leukocyte Esterase 1+ (NEGATIVE) H Urine RBC Tntc /HPF (0 - 2) H Urine WBC 5-10 /HPF (0 - 2) H Urine Squamous Epithelial Cells Moderate /LPF (NONE/OCC) H Urine Bacteria Few /HPF (NONE) Sodium Level 140 MMOL/L (136-145) Potassium Level 3.2 MMOL/L (3.5-5.1) L Chloride Level 103 MMOL/L (98-107) Carbon Dioxide Level 30 MMOL/L (21-32) Anion Gap 7 mmol/L (5-15) Blood Urea Nitrogen 6 mg/dL (7-18) L Creatinine 0.9 MG/DL (0.55-1.30) Estimated Glomerular Filtration Rate > 60 mL/min (>60) Glucose Level 95 MG/DL (74-106) Calcium Level 8.9 MG/DL (8.5-10.1) Total Bilirubin 0.2 MG/DL (0.2-1.0) Aspartate Amino Transferase (AST) 15 U/L (15-37) Alanine Aminotransferase (ALT) 8 U/L (12-78) L Alkaline Phosphatase 44 U/L (46-116) L Total Protein 7.9 G/DL (6.4-8.2) Albumin 4.2 G/DL (3.4-5.0) Globulin 3.7 g/dL Albumin/Globulin Ratio 1.1 (1.0-2.7) Lipase 216 U/L (73-393) Human Chorionic Gonadotropin, Qual Positive (NEGATIVE) Last Vital Signs Date Time Temp Pulse Resp B/P (MAP) Pulse Ox O2 Delivery O2 Flow Rate FiO2 04/18/20 20:45 Room Air Disposition: HOME, SELF-CARE Condition: Stable Sunil Mejia MD Apr 18, 2020 20:50
--- NOTE | 2020-04-18 20:55 | NUR ---
ED Nurse Note: Patient walked in from home c/o increasing vaginal bleeding all day today, patient reports she is 6-7 weeks and was seen by her OBGYN earlier today. Patient aao x 4 and ambulatory with weak gait. patient also reports she passed a blood clot. Patient changed into gown and placed on bus driver/monitor. No acute distress noted.
[2020-04-18 21:25] LABS: BASOPHILS % (AUTO) 1.6 % (0.0-2.0); EOSINOPHILS % (AUTO) 1.7 % (0.0-3.0); HEMATOCRIT 39.8 % (37.0-47.0); HEMOGLOBIN 12.6 G/DL (12.0-16.0); LYMPHOCYTES % (AUTO) 47.3 % (20.0-45.0); MEAN CORPUSCULAR VOLUME 75 FL (80-99); MONOCYTES % (AUTO) 8.1 % (1.0-10.0); NEUTROPHILS % (AUTO) 41.3 % (45.0-75.0); PLATELET COUNT 301 K/UL (150-450); RED CELL DISTRIBUTION WIDTH 14.2 % (11.6-14.8); WHITE BLOOD COUNT 5.3 K/UL (4.8-10.8)
[2020-04-18 21:27] LABS: ANION GAP 7 mmol/L (5-15); BLOOD UREA NITROGEN 6 mg/dL (7-18); CALCIUM 8.9 MG/DL (8.5-10.1); CARBON DIOXIDE 30 MMOL/L (21-32); CHLORIDE 103 MMOL/L (98-107); CREATININE 0.9 MG/DL (0.55-1.30); POTASSIUM 3.2 MMOL/L (3.5-5.1); SODIUM 140 MMOL/L (136-145)
[2020-04-18 21:31] LABS: APPEARANCE,URINE TURBID; BILIRUBIN, URINE NEGATIVE (NEGATIVE); GLUCOSE, URINE (UA) 1+ (NEGATIVE); KETONES,URINE NEGATIVE (NEGATIVE); LEUKOCYTE ESTERASE ,URINE 1+ (NEGATIVE); NITRITE,URINE POSITIVE (NEGATIVE); PH,URINE 8 (4.5-8.0); PROTEIN,URINE 4+ (NEGATIVE); UROBILINOGEN,URINE NORMAL MG/DL (0.0-1.0)
[2020-04-18 21:32] LABS: ALANINE AMINOTRANSFERASE 8 U/L (12-78); ALBUMIN 4.2 G/DL (3.4-5.0); ALBUMIN/GLOBULIN RATIO 1.1 (1.0-2.7); ALKALINE PHOSPHATASE 44 U/L (46-116); ASPARTATE AMINO TRANSFERASE 15 U/L (15-37); BILIRUBIN,TOTAL 0.2 MG/DL (0.2-1.0)
[2020-04-18 21:33] LABS: COLOR,URINE RED
[2020-04-18] MEDS ORDERED: cefTRIAXone 1 GM in NS 55 ML IVPB ONE (22:15)
--- NOTE | 2020-04-18 22:24 | NUR ---
ED Nurse Note: Patient returned from US in stable condition
--- NOTE | 2020-04-18 23:14 | Diagnostic Imaging Report ---
EXAM: US Pelvis Transabdominal and Transvaginal CLINICAL HISTORY: ABD PAIN TECHNIQUE: Real-time transabdominal and transvaginal pelvic ultrasound with image documentation. Transvaginal imaging was used for better evaluation of the endometrium and adnexa. COMPARISON: 04/02/20. FINDINGS: Uterus/cervix: No intrauterine identified. 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 Normal endometrial stripe thickness. No myometrial mass. Right ovary: Questionable trace of echogenic fluid in the right adnexal region, may suggest hemorrhage. Right ovary is poorly demonstrated, measures about 2. 8x 0.9 x 1.9 cm. Left ovary: Left ovary is poorly demonstrated, measures about 3.4 x 1. 4 x 3.2 cm. IMPRESSION: 1. No intrauterine identified, suggestive of spontaneous . 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 2. Questionable trace of echogenic fluid in the right adnexal region, may suggest hemorrhage.
[2020-04-18 23:40] VITALS: BP 112/85
--- NOTE | 2020-04-18 23:40 | NUR ---
ER DISCHARGE NOTE: Patient is cleared to be discharged per ERMD, pt is aox4, on room air, with stable vital signs. pt was given dc and prescription instructions, pt was able to verbalize understanding, pt id band and iv site removed intact without complications. pt is able to ambulate with steady gait. pt took all belongings. pt stable upon discharge.
== END 2020-04-18 23:40 | disposition home or self-care (01) ==
LOC: EMR 21:00
DX: O03.4 Incomplete spontaneous abortion without complication (principal); Z3A.01 Less than 8 weeks gestation of pregnancy
CPT/HCPCS: 36415; 76801; 80053; 81003; 83690; 84703; 85025; 85610; 85730; 96365; 99284; J0696